=== PATIENT | female | born 1960 | race Caucasian/White ===

== ENCOUNTER 2025-05-14 06:35 | Outpatient (CLI) | payer SELFPAY ==
--- OUTSIDE RECORDS SUMMARY | 2022-09-14 12:25 | XMS_ITS | Encounter Summary ---
Author Organization [facility] Address [address] [place] [address] Care Team Providers Care Chlorinator Name Role Phone Oneyda Gunn MD Primary Care Provider [phone] Encounter Details Date Type Department Care Team (Late st Contact Info) Description 09/14/2022 1:25 PM EDT Hospital Encounter [facility] PUL[facility] MEDIC[facility] [place] [address] Social History Tobacco Use Types Packs/Day Years Used Date Smoking Tobacco: Never Smokeless Tobacco: Never Comments:exposed to second h and smoke in the home growing up Alcohol Use Standard Drinks/Week Comments Yes 0 (1 standard drink = 0.6 oz pure alcohol) win or liquor rarely, maybe once every 1-3 months PHQ-2 Answer Date Recorded Retired Total Score 0 06/06/2021 Abuse Screen Answer Date Recorded Feels Unsafe at Home or Work/School no 07/05/2022 Feels Threatened by Someone no 06/25 Does Anyone Try to Keep You From Having Contact with Others or Doing Things Outside Your Home? no 07/05/2022 Physical Signs of Abuse Present no 07/05/2022 Housing Stability Answer Date Recorded Current Living Arrangements home 06/25 Potentially Unsafe Housing Conditions Not on miriam e 07/05/2022 Disabilities Answer Date Recorded Difficulty Concentrating, Remembering or Making Decisions no 07/05/2022 Difficulty Managing Errands Independently no 07/05/2022 Education Answer Date Recorded Help with school or training? Not on file Preferred Language Central African 07/03/2022 PHQ-2 Answer Date Recorded Patient Health Questionnaire-2 Score 0 09/18/2024 Comments No Sex and Gender Information Value Date Recorded Sex Assigned at Female 04/05/2020 3:01 PM EDT Legal Sex Female 10:46 AM EDT Gender Identity Female 04/05/2020 3:04 PM EDT Sexual Orientation Straight 04/05/2020 3: 01 PM EDT documented as of this encounter Functional Status documented as of this encounter Plan of Treatment Upcoming Encounters Date Type Department Care Team (Late st Contact Info) Description 05/15/2025 2:00 PM EST Appointment [facility] [place] [address] [facility] [address] [place] [address] 05/15/2025 3:00 PM EST Appointment [facility] [place] [address] [facility] [address] [place] [address] 06/11/2025 7:45 AM EST Appointment [facility] [address] [place] [facility] [address] [place] [address] 07/03/2025 9:00 AM EST Office Visit [facility] GASTROENTEROLOGY [address] [place] [phone] Bonnie More, AMBROSE [address] [facility] [address] [place] [id number] 09/28/2025 8:30 AM EDT Office Visit [facility] [address] [place] [address] Ayanna Cooney DO [address] [place] [address] documented as of this encounter Procedures Procedure Name Priority Date/Time Associated Diagnosis Comments XR CHEST PA AND LATERAL Routine 09/14/2022 1:29 PM EDT H/O Asthma documented in this encounter Results * XR Chest PA & Lateral (09/14/2022 1:29 PM EDT) Anatomical Region Laterality Modality Body, Chest N/A Radiographic Debbie ging Narrative 09/14/2022 1:43 PM EDT PA and lateral chest x-rays obtained Cardiac silhouette is within normal limits of size CT ratio is 12 x 29 No effusions, infiltrates, or consolidation Reagan Black MD IMG DIAGNOSTIC IMAGING ORDERABLES Final Result documented in this encounter Visit Diagnoses Not on filedocumented in this encounter Care Teams Chlorinator Relationship Specialty Start Date End Date Oneyda Gunn MD PCP - General Family Medicine 06/08/22 09/17/24 Dr. Samra Angeles Physical Medicine and Rehabilitation 06/06/21 documented as of this encounter
--- OUTSIDE RECORDS SUMMARY | 2025-03-30 13:00 | XMS_ITS | Encounter Summary ---
[facility] Organization [facility] Address [address] [place] [address] Care Team Providers Care Director Heart Name Role Phone Ayanna Cooney DO Primary Care Provider [phone] Reason for Referral * Diagnostic Imaging (Routine) - Closed Specialty Diagnoses / Procedures Referred By Aj t Referred To Contact Radiology Diagnoses Multinodular goiter Procedures US Thyroid Ayanna Cooney DO [address] [place] [address] Phone: tel: fax: [facility] [address] [place] [address] Phone: tel: Referral ID Status Reason Start Date Expiration Date Visits Re quested Visits Authorized [id number] Closed 03/30/2025 06/29/2026 1 1 * Consultation (Routine) - Authorized Specialty Diagnoses / Procedures Referred By Contac t Referred To Contact Gastroenterology Diagnoses NAFLD (nonalcoholic fatty liver disease) Procedures AL OFFICE/OUTPATIENT NEW MODERATE MDM 45 MINUTES Ayanna Cooney DO [address] [place] [address] Phone: tel: fax: [facility] [address] [place] [phone] Phone: tel: fax: Referral ID Status Reason Start Date Expiration Date Visits Requested Visits Authorized [id number] Authorized Specialty Services Required 03/30/2025 06/29/2026 1 1 * MRI/CAT/PET Scan (Routine) - Authorized Specialty Diagnoses / Procedures Referred By Contac t Referred To Contact Radiology Diagnoses Encounter for screening for coronary artery disease Procedures CT Cardiac Calcium Score Without Dye Ayanna Cooney DO [address] [place] [address] Phone: tel: fax: [facility] [address] [address] [place] [address] Phone: tel: Referral ID Status Reason Start Date Expiration Date V isits Requested Visits Authorized [id number] Authorized 03/30/2025 06/29/2026 1 1 * Monitoring (Routine) - Closed Specialty Diagnoses / Procedures Referred By Contjavier t Referred To Contact Cardiology Diagnoses Dizziness Palpitations Procedures Holter Monitor - 72 Hour Up To 15 Days Ayanna Cooney DO [address] [place] [address] Phone: tel: fax: [facility] [address] [place] [phone] Phone: tel: fax: Referral ID Status Reason Start Date Expiration Date Visits Re quested Visits Authorized [id number] Closed 03/30/2025 06/29/2026 1 1 * Diagnostic Imaging (Routine) - Authorized Specialty Diagnoses / Procedures Referred By Contac t Referred To Contact Radiology Diagnoses Dizziness Palpitations Procedures Duplex Carotid Ultrasound CAR Ayanna Cooney DO [address] [place] [address] Phone: tel: fax: [facility] [address] [place] [address] Phone: tel: Referral ID Status Reason Start Date Expiration Date V isits Requested Visits Authorized [id number] Authorized 03/30/2025 06/29/2026 1 1 * Diagnostic Imaging (Routine) - Authorized Specialty Diagnoses / Procedures Referred By Contac t Referred To Contact Cardiology Diagnoses Dizziness Palpitations Procedures Adult Transthoracic Echo Complete W/ Cont if Necessary Per Protocol AL ECHO TTHRC R-T 2D W/WOM-MODE COMPL SPEC&COLR D AL ECHO TRANSTHORC R-T 2D W/WO M-MODE REC F-UP/LMTD Ayanna Cooney DO [address] [place] [address] Phone: tel: fax: [facility] [address] [place] [address] Phone: tel: fax: Referral ID Status Reason Start Date Expiration Date V isits Requested Visits Authorized [id number] Authorized 03/30/2025 06/29/2026 1 1 Reason for Visit * Reason Comments Annual Exam Encounter Details Date Type Department Care Team (Late st Contact Info) Description 03/30/2025 2:00 PM EDT Office Visit [facility] [address] [place] [phone] Ayanna Cooney DO [address] [place] [address] Annual physical exam (Primary Dx); Prediabetes; Dizziness; Palpitations; NAFLD (nonalcoholic fatty liver disease); Multinodular goiter; Need for influenza vaccination; Encounter for screening for coronary artery disease; Need for pneumococcal vaccination Social History Tobacco Use Types Packs/Day Years Used Date Smoking Tobacco: Never Smokeless Tobacco: Never Tobacco Cessation:Counseling Given: Not Answered Comments:exposed to second hand smoke in the home growing up Alcohol [...] or training? Not on file Preferred Language Tuvaluan 07/03/2022 PHQ-2 Answer Date Recorded Patient Health Questionnaire-2 Score 0 09/18/2024 Comments No Sex and Gender Information Value Date Recorded Sex Assigned at Female 04/05/2020 3:01 PM EDT Legal Sex Female 10:46 AM EDT Gender Identity Female 04/05/2020 3:04 PM EDT Sexual Orientation Straight 04/05/2020 3: 01 PM EDT documented as of this encounter Last Filed Vital Signs Vital Sign Reading Time Taken Comments Blood Pressure 110/62 03/30/2025 1:56 PM EDT Pulse 86 03/30/2025 1:56 PM EDT Temperature 36.6 C (97.8 F) 03/30/2025 1:56 PM EDT Respiratory Rate 18 03/30/2025 1:56 PM EDT Oxygen Saturation 96% 03/30/2025 1:56 PM EDT Inhaled Oxygen Concentration - - Weight 67.9 kg (149 lb 12.8 oz) 03/30/2025 1:56 PM EDT Height 162.6 cm (5' 4 ) 03/30/2025 1:56 PM EDT Body Mass Index 25.71 03/30/2025 1:56 PM EDT documented in this encounter Patient Instructions * Attachments The following attachments cannot be sent through Care Everywhere. * Palpitations [id number] (Tuvaluan) documented in this encounter Progress Notes * Ayanna Cooney, - 03/30/2025 2:00 PM EDTAssociated Order(s): ECG 12 Lead Post-Procedure Diagnose(s): Dizziness; Palpitations Chief Complaint Annual Exam Subjective [place] presents to [facility] History of Present Illness The patient presents for an annual exam. She reports experiencing heart palpitations and occasional dizziness, particularly during physical activities such as using an elliptical machine. These symptoms also occur when she is at rest, accompanied by an unusual sensation in her chest. She has a history of mitral valve prolapse but notes kristopher t these current symptoms are different from her usual experience. She recalls wearing a Holter monitor in her late teens. She occasionally experiences shortness of breath, which can persist for several weeks or even months. She underwent a stress test with a stone breaker in the past. She has noticed that her palpitations often coincide with emotional distress or exercise, and can last for up to two months. She describes these episodes as feeling like her heart is stopping and starting again, followed by dizziness. She has experienced these symptoms three or four times in the past year, oftentriggered by emotional stress. She has been diagnosed with fatty liver disease and has noticed an increase in her cholesterol levels, bilirubin, and A1c. She was informed that these changes could be due to her fatty liver. She wasfirst diagnosed with fatty liver disease about a decade ago. She is considering changing her cupola operator due to a lack of follow-up. She had an abdominal ultrasound done recently, which showed diffuse fatty metamorphosis of the liver. She has a history of fatty liver disease and was told that her condition has worsened based on the ultrasound results. She has a history of cysts on her organs, including her liver, kidneys, and spleen. She is concerned about the possibility of nonalcoholic steatohepatitis (VERONICA) as she was informed about this during her ultrasound. Her A1c level has increased slightly from the previous year, and she has been making dietary changes to manage her blood sugar levels. She has noticed that her fasting blood sugar levels have been higher than expected. She is scheduled for a colonoscopy and endoscopy on 04/21/2025. She has a history of polyps and precancerous conditions. She had a mammogram earlier this year and is due for another one early next year. She is up-to-date with her eye exams and dental check-ups, with the next dental check-up scheduled in three weeks. She is not due for another Pap smear for over two months. She requests a refill of her albuterol nebulizer solution as her current supply has . She has a history of multinodular goiter and has had several thyroid ultrasounds, with the most recent one being in 01/2023. The following portions of the patient's history were reviewed and updated as appropriate: allergies, current medications, past family history, past medical history, past social history, past surgicalhistory, and problem list. Objective Physical Exam Vitals and nursing note reviewed. Constitutional: Appearance: Normal appearance. HENT: Right Ear: Tympanic membrane, ear canal and external ear normal. Left Ear: Tympanic membrane, ear canal and external ear normal. Cardiovascular: Rate and Rhythm: Normal rate and regular rhythm. Heart sounds: Normal heart sounds. Pulmonary: Effort: Pulmonary effort is normal. Breath sounds: Normal breath sounds. Musculoskeletal: Cervical back: Neck supple. Neurological: Mental Status: She is alert. Psychiatric: Mood and Affect: Mood normal. Physical Exam Result Review : Results 03/05/2025 03/05/2025 US, abdomen, complete [address] [place] [address] Patient Name: [place] Patient : [id number] Patient Ordering Provider: CUAUHTEMOC ST EXAM DATE: 03/05/2025 EXAM: US ABDOMEN COMPLETE CLINICAL INFORMATION: Fatty liver TECHNIQUE: Multiple sonographic images of the abdomen were obtained. COMPARISON: None. FINDINGS: LIVER: Diffuse fatty metamorphosis of the liver is noted. No obvious focal lesion. BILIARY SYSTEM: Gallbladder is normal in size and wall thickness. 5 mm filling defect compatible with polyp. No intrahepatic biliary dilatation. CBD measurement = mm. Normal in size. PANCREAS: Well visualized. Nor mal in size and echogenicity. No obvious focal lesion. RIGHT KIDNEY: Length = 11.1 cm. No hydronephrosis, mass or stone. LEFT KIDNEY: Length = 10.3 cm. No hydronephrosis, mass or stone. 16 mm cyst SPLEEN: Length = 11 cm. Normal in size echogenicity and echotexture. No obvious focal lesion. AORTA: Normal in diameter and course without evidence of aneurysm. IMPRESSION: 1. Fatty liver 2. Small gallbladder polyp. 3. Simple cyst left kidney Interpreted By: Reagan Perdomo MD 12 Lead Date/Time: 03/30/2025 2:51 PM Performed by: Ayanna Cooney DO Authorized by: Ayanna Cooney DO Comparison: compared with previous ECG from 05/17/2019 Similar to previous ECG Comparison to previous ECG: Sinus rhythm with short AL interval Rhythm: sinus rhythm Rate: normal BPM: 83 QRS axis: normal Other findings comments: Short AL interval Clinical impression: non-specific ECG Assessment and Plan Diagnoses and all orders for this visit: 1. Annual physical exam (Primary) - CBC (No Diff) - Comprehensive Metabolic Panel - TSH Rfx On Abnormal To Free T4 - Magnesium - Hemoglobin A1c 2. Prediabetes - CBC (No Diff) - Comprehensive Metabolic Panel - TSH Rfx On Abnormal To Free T4 - Magnesium - Hemoglobin A1c 3. Dizziness - CBC (No Diff) - Comprehensive Metabolic Panel - TSH Rfx On Abnormal To Free T4 - Magnesium - Adult Transthoracic Echo Complete W/ Cont if Necessary Per Protocol; Future - Duplex Carotid Ultrasound CAR; Future - Holter Monitor - 72 Hour Up To 15 Days; Future - Hemoglobin A1c - ECG 12 Lead 4. Palpitations - CBC (No Diff) - Comprehensive Metabolic Panel - TSH Rfx On Abnormal To Free T4 - Magnesium - Adult Transthoracic Echo Complete W/ Cont if Necessary Per Protocol; Future - Duplex Carotid Ultrasound CAR; Future - Holter Monitor - 72 Hour Up To 15 Days; Future - Hemoglobin A1c - ECG 12 Lead 5. NAFLD (nonalcoholic fatty liver disease) - Ambulatory Referral to Gastroenterology 6. Multinodular goiter - US Thyroid 7. Need for influenza vaccination - Fluzone 6mos+ ([id number]) 8. Encounter for screening for coronary artery disease - CBC (No Diff) - Comprehensive Metabolic Panel - TSH Rfx On Abnormal To Free T4 - Magnesium - CT Cardiac Calcium Score Without Dye; Future - Hemoglobin A1c 9. Need for pneumococcal vaccination - Pneumococcal Conjugate Vaccine 21-Valent All Other orders - albuterol (ACCUNEB) 1.25 MG/3ML nebulizer solution; Take 3 mL by nebulization Every 4 (Four) Hours As Needed for Wheezing or Shortness of Air. Dispense: 120 mL; Refill: 2 Assessment & Plan 1. Palpitations: - She reports experiencing heart palpitations, particularly during exercise and emotionally stressful events. - An EKG will be performed today to update her cardiac status. A 72-hour Holter monitor will be ordered to capture any arrhythmias. An echocardiogram will be scheduled to assess cardiac function. - Blood work will be conducted to check electrolytes, thyroid function, and anemia. 2. Dizziness: - She experiences dizziness, especially during physical activity and emotionally stressful events. - An ultrasound of the carotids will be ordered to evaluate blood flow to the head and neck. - Blood work will be conducted to check electrolytes, thyroid function, and anemia. 3. Fatty Liver: - She has a history of fatty liver and recent ultrasound results indicating diffuse fatty metamorphosis of the liver. - A referral to a cupola operator will be made for further evaluation and management. 4. Prediabetes: - Her A1c level is 5.9, indicating prediabetes. - She is advised to continue lifestyle modifications, including diet and exercise, to manage blood sugar levels. - Blood work will be conducted to monitor her glucose levels. 5. Medication Management: - A prescription for albuterol nebulizer solution will be sent to pharmacy. 6. Health Maintenance: - She is scheduled for a colonoscopy and endoscopy on 04/21/2025. She has a history of polyps and precancerous conditions. She had a mammogram earlier this year and is due for another one early next year. - She is up-to-date with her eye exams and dental check-ups, with the next dental check-up scheduled in three weeks. Follow Up Return in about 6 months (around 09/28/2025) for Recheck. Patient or patient surgical sales representative verbalized consent for the use of Ambient Listening during the visit with Ayanna Cooney DO for chart documentation. 03/31/2025 12:19 EDT Patient was given instructions and counseling regarding her condition or for health maintenance advice. Please see specific information pulled into the AVS if appropriate. documented in this encounter Plan of Treatment Upcoming Encounters Date Type Department Care Team (Late st Contact Info) Description 05/15/2025 2:00 PM EST Appointment [facility] [place] [address] [facility] [address] [place] [address] 05/15/2025 3:00 PM EST Appointment [facility] [place] [address] [facility] [address] [place] [address] 06/11/2025 7:45 AM EST Appointment [facility] [place] [address] [facility] [address] [place] [address] 07/03/2025 9:00 AM EST Office Visit [facility] [address] [phone] Bonnie More, FILLER FEEDER [address] [facility] [address] [place] [address] 09/28/2025 8:30 AM EDT Office Visit [facility] [address] [facility] [address] Ayanna Cooney DO [address] [facility] [address] Pending Results Name Type Priority Associated Diagnoses Date /Time US Thyroid Imaging Routine Multinodular goiter 05/12/2025 2:16 PM EST Holter Monitor - 72 Hour Up To 15 Days Cardiac Services Routine Dizziness Palpitations 03/31/2025 10:32 AM EDT Scheduled Orders Name Type Priority Associated Diagnoses Order Schedule Adult Transthoracic Echo Complete W/ Cont if Necessary Per Protocol Echocardiography Routine Dizziness Palpitations Expected: 04/04/2025, Expires: 06/30/2026 Duplex Carotid Ultrasound CAR Vascular Ultrasound Routine Dizziness Palpitations Expected: 04/06/2025 (Approximate), Expires: 03/30/2026 Holter Monitor - 72 Hour Up To 15 Days Cardiac Services Routine Dizziness Palpitations Expected: 04/04/2025, Expires: 03/30/2026 CT Cardiac Calcium Score Without Dye Imaging Routine Encounter for screening for coronary artery disease Expected: 03/31/2025, Expires: 06/30/2026 Scheduled Referrals Name Type Priority Associated Diagnoses Order Schedule Ambulatory Referral to Gastroenterology Outpatient Referral Routine NAFLD (nonalcoholic fatty liver disease) Ordered: 03/30/2025 documented as of this encounter Procedures Procedure Name Priority Date/Time Associated Diagnosis Comments TSH RFX ON ABNORMAL TO FREE T4 Routine 03/30/2025 2:51 PM EDT Annual physical exam Prediabetes Dizziness Palpitations Encounter for screening for coronary artery disease CBC (NO DIFF) Routine 03/30/2025 2:51 PM EDT Annual physical exam Prediabetes Dizziness Palpitations Encounter for screening for coronary artery disease MAGNESIUM Routine 03/30/2025 2:51 PM EDT Annual physical exam Prediabetes Dizziness Palpitations Encounter for screening for coronary artery disease HEMOGLOBIN A1C Routine 03/30/2025 2:51 PM EDT Annual physical exam Prediabetes Dizziness Palpitations Encounter for screening for coronary artery disease COMPREHENSIVE METABOLIC PANEL Routine 03/30/2025 2:51 PM EDT Annual physical exam Prediabetes Dizziness Palpitations Encounter for screening for coronary artery disease ECG 12-LEAD Routine 03/30/2025 2:51 PM EDT Dizziness Palpitations documented in this encounter Results * (ABNORMAL) Hemoglobin A1c (03/30/2025 2:51 PM EDT) Hemoglobin A1C 6.0(H) 4.8 - 5.6 % [facility] Comment: Prediabetes: 5.7 - 6.4 Diabetes: >6.4 Glycemic control for adults with diabetes: <7.0 Blood 03/30/2025 2:51 PM EDT 03/30/2025 Narrative [facility] ([facility]) - 03/31/2025 8:11 AM EDT Performed at: - [address] [id number] Colliery Clerk: Sandro Velázquez PhD, Phone: [phone] Patient Fasting: Y [facility] Marina Cooney LAB BLOOD ORDERABLES Final Result Performing Organization Address [facility] Co de Phone Number [facility] [address] [place] [address], [place] [phone] [facility] [address] [place] [address], [place] [phone] * Magnesium (03/30/2025 2:51 PM EDT) Magnesium 2.2 1.6 - 2.3 mg/dL [facility] Blood 03/30/2025 2:51 PM EDT 03/30/2025 Narrative [facility] ([facility]) - 03/31/2025 8:11 AM EDT Performed at: [address] [id number] Colliery Clerk: Sandro Velázquez PhD, Phone: [phone] Patient Fasting: Y Ayanna Cooney DO LAB BLOOD ORDERABLES Final Result Performing Organization Address [facility] de Phone Number [facility] [address] [place] [address], [place] [phone] [facility] [address] [place] [address], [place] [phone] * TSH Rfx On Abnormal To Free T4 (03/30/2025 2:51 PM EDT) TSH 1.510 0.450 - 4.500 uIU/mL [facility] Blood 03/30/2025 2:51 PM EDT 03/30/2025 Narrative [facility] ([facility]) - 03/31/2025 8:11 AM EDT Performed at: - [facility] [place] [id number] [place], [place] [id number] Colliery Clerk: Sandro Velázquez PhD, Phone: [phone] Patient Fasting: Y Ayanna Cooney LAB BLOOD ORDERABLES Final Result [facility] (AMBULAT[facility]) [address] [place] [address], [facility] [address] [place] [address], * Comprehensive Metabolic Panel (03/30/2025 2:51 PM EDT) [facility] Glucose 97 70 - 99 mg/dL [facility] BUN 11 8 - 27 mg/dL [facility] Creatinine 0.89 0.57 - 1.00 mg/dL [facility] EGFR Result 73 >59 mL/min/1.7 3 [facility] BUN/Creatinine Ratio 12 12 - 28 [facility] Sodium 144 134 - 144 mmol/L [facility] Potassium 4.4 3.5 - 5.2 mmol/L [facility] Chloride 106 96 - 106 mmol/L [facility] Total CO2 22 20 - 29 mmol/L [facility] Calcium 9.8 8.7 - 10.3 mg/dL [facility] Total Protein 6.9 6.0 - 8.5 g/dL [facility] Albumin 4.7 3.9 - 4.9 g/dL [facility] Globulin 2.2 1.5 - 4.5 g/dL [facility] Total Bilirubin 0.6 0.0 - 1.2 mg/dL [facility] Alkaline Phosphatase 75 49 - 135 IU/L [facility] AST (SGOT) 24 0 - 40 IU/L [facility] ALT (SGPT) 23 0 - 32 IU/L [facility] Blood 03/30/2025 2:51 PM EDT 03/30/2025 Narrative [facility] ([facility]) - 03/31/2025 8:11 AM EDT Performed at: 01 - [facility] [address] [place], [place] [id number] Colliery Clerk: Sandro Velázquez PhD, Phone: [phone] Patient Fasting: Y Ayanna Cooney DO LAB BLOOD ORDERABLES Final Result Performing Organization Address City/[facility]/ZIP Co de Phone Number [facility] ([facility]) [address] [place] [address], [place] [phone] [facility] [address] [place] [address], [place] [phone] * (ABNORMAL) CBC (No Diff) (03/30/2025 2:51 PM EDT) [facility] WBC 7.1 3.4 - 10.8 x10E3/uL [facility] RBC 5.57(H) 3.77 - 5.28 x10E6/uL [facility] Hemoglobin 15.4 11.1 - 15.9 g/dL [facility] Hematocrit 47.7(H) 34.0 - 46.6 % [facility] MCV 86 79 - 97 fL [facility] MCH 27.6 26.6 - 33.0 pg [facility] MCHC 32.3 31.5 - 35.7 g/dL [facility] RDW 13.4 11.7 - 15.4 % [facility] Platelets 319 150 - 450 x10E3/uL [facility] Blood 03/30/2025 2:51 PM EDT 03/30/2025 Narrative [facility] (AMBULATORY) - 03/31/2025 8:11 AM EDT Performed at: 01 - [facility] [address] [place], [place] [id number] Colliery Clerk: Sandro Velázquez PhD, Phone: [phone] Patient Fasting: Y Ayanna Cooney DO LAB BLOOD ORDERABLES Final Result [facility] ([facility]) [address] [place] [address], [place] [phone] [facility] [address] [place] [address], [place] [phone] * ECG 12-LEAD (03/30/2025 2:51 PM EDT) Narrative Ayanna Cooney DO - 03/30/2025 2:51 PM EDT Ayanna Cooney DO 03/31/2025 12:19 PM ECG 12 Lead Date/Time: 03/30/2025 2:51 PM Performed by: Ayanna Cooney DO Authorized by: Ayanna Cooney DO Comparison: compared with previous ECG from 05/17/2019 Similar to previous ECG Comparison to previous ECG: Sinus rhythm with short AL interval Rhythm: sinus rhythm Rate: normal BPM: 83 QRS axis: normal Other findings comments: Short AL interval Clinical impression: non-specific ECG us Ayanna Cooney DO ECG ORDERABLES Final Resul t documented in this encounter Visit Diagnoses Diagnosis Annual physical exam- Primary Routine general medical examination at a health care facility Prediabetes Other abnormal glucose Dizziness Dizziness and giddiness Palpitations NAFLD (nonalcoholic fatty liver disease) Multinodular goiter Nontoxic multinodular goiter Need for influenza vaccination Need for prophylactic vaccination and inoculation against influenza Encounter for screening for coronary artery disease Need for pneumococcal vaccination Need for prophylactic vaccination against streptococcus pneumoniae (pneumococcus) documented in this encounter Care Teams Director Heart Relationship Specialty Start Date End Date [place] [address] PCP - General Family Medicine 09/18/24 Dr. Samra Angeles Physical Medicine and Rehabilitation 06/06/21 documented as of this encounter
--- OUTSIDE RECORDS SUMMARY | 2025-03-31 09:30 | XMS_ITS | Encounter Summary ---
Author Organization [facility] Address [address] [place] [address] Care Team Providers Care Cancer Program Director Name Role Phone Ayanna Cooney DO Primary Care Provider [phone]- [phone] Reason for Visit * Monitoring (Routine) - Closed Specialty Diagnoses / Procedures Referred By Aj simental Referred To Contact Cardiology Diagnoses Dizziness Palpitations Procedures Holter Monitor - 72 Hour Up To 15 Days Ayanna Cooney DO [address] [place] [address] Phone: tel: fax: [facility] [address] [place] [phone] Phone: tel: fax: Referral ID Status Reason Start Date Expiration Date Visits Re quested Visits Authorized [id number] Closed 03/30/2025 06/29/2026 1 1 Encounter Details Date Type Department Care Team (Latest Contact Info) Description 03/31/2025 10:30 AM EDT Ancillary Procedure [facility] [address] [address] Dizziness; Palpitations Social History Tobacco Use Types Packs/Day Years [...] or training? Not on file Preferred Language British 07/03/2022 PHQ-2 Answer Date Recorded Patient Health Questionnaire-2 Score 0 09/18/2024 Comments No Sex and Gender Information Value Date Recorded Sex Assigned at Female 04/05/2020 3:01 PM EDT Legal Sex Female 10:46 AM EDT Gender Identity Female 04/05/2020 3:04 PM EDT Sexual Orientation Straight 04/05/2020 3: 01 PM EDT documented as of this encounter Plan of Treatment Upcoming Encounters Date Type Department Care Team (Late st Contact Info) Description 05/15/2025 2:00 PM EST Appointment [facility] NONINVASIVE LAB [address] [place] [address] 05/15/2025 3:00 PM EST Appointment [facility] NONINVASIVE LAB [address] [place] [address] 06/11/2025 7:45 AM EST Appointment [facility] CT [address] [place] [address] 07/03/2025 9:00 AM EST Office Visit [facility] [address] [facility] [address] [place] [phone] Bonnie More, [employer] PROJECT MANAGER [address] [facility] [address] [place], [place] [phone] 09/28/2025 8:30 AM EDT Office Visit [facility] [address] [place] [address] Ayanna Cooney DO [address] [place] [address] Pending Results Name Type Priority Associated Diagnoses Date /Time Holter Monitor - 72 Hour Up To 15 Days Cardiac Services Routine Dizziness Palpitations 03/31/2025 10:32 AM EDT documented as of this encounter Visit Diagnoses Diagnosis Dizziness Dizziness and giddiness Palpitations documented in this encounter Care Teams Cancer Program Director Relationship Specialty Start Date End Date Ayanna Cooney DO [address] [place] [address] PCP - General Family Medicine 09/18/24 Dr. Samra Angeles Physical Medicine and Rehabilitation 06/06/21 documented as of this encounter
--- OUTSIDE RECORDS SUMMARY | 2025-05-12 13:57 | XMS_ITS | Encounter Summary ---
Author Organization [facility] Address [address] [place] [address] Care Team Providers Care Jd Edwards Consultant Name Role Phone Ayanna Cooney DO Primary Care Provider [phone]- [phone] Reason for Visit * Diagnostic Imaging (Routine) - Closed Specialty Diagnoses / Procedures Referred By Aj simental Referred To Contact Radiology Diagnoses Multinodular goiter Procedures US Thyroid Ayanna Cooney DO [address] [facility] [place] [address] Phone: tel: fax: [facility] [place] [address] [place] [address] Phone: tel: Referral ID Status Reason Start Date Expiration Date Visits Re quested Visits Authorized [id number] Closed 03/30/2025 06/29/2026 1 1 Encounter Details Date Type Department Care Team (Latest Contact Info) Description 05/12/2025 1:57 PM EST - 05/12/2025 11:59 PM EST Hospital Encounter [facility] [place] [address] [place] [place] [address] Arrived Discharge Disposition: Home or Self Care Social History Tobacco Use Types Packs/Day Years [...] or training? Not on file Preferred Language Spanish 07/03/2022 PHQ-2 Answer Date Recorded Patient Health Questionnaire-2 Score 0 09/18/2024 Comments No Sex and Gender Information Value Date Recorded Sex Assigned at Female 04/05/2020 3:01 PM EDT Legal Sex Female 10:46 AM EDT Gender Identity Female 04/05/2020 3:04 PM EDT Sexual Orientation Straight 04/05/2020 3: 01 PM EDT documented as of this encounter Medications at Time of Discharge albuterol (ACCUNEB) 1.25 MG/3ML nebulizer solution Take 3 mL by nebulization Every 4 (Four) Hours As Needed for Wheezing or Shortness of Air. 120 mL 2 5 Cholecalciferol (VITAMIN D3) 5000 units capsule capsule Take 1 capsule by mouth Every Other Day. esomeprazole (nexIUM) 20 MG capsule Take 1 capsule by mouth Every Morning Before Breakfast. methocarbamol (ROBAXIN) 500 MG tablet TAKE ONE TABLET BY MOUTH THREE TIMES A DAY NEEDED FOR NECK PAIN 30 tablet 9 Multiple Vitamins-Minerals (MULTIVITAMIN ADULT EXTRA C PO) Take 1 tablet/day by mouth. onabotulinumtoxina (Botox) 100 units reconstituted solution injection ondansetron (ZOFRAN) 4 MG tablet Take 1 tablet by mouth Every 8 (Eight) Hours As Needed (migraine). 0 rizatriptan SENIOR DENTIST (MAXALT-SENIOR DENTIST) [address] 1 tablet on the tongue 1 (One) Time As Needed for Migraine. Ventolin HFA 108 (90 Base) MCG/ACT inhalerIndications: Intermittent asthma without complication, unspecified asthma severity Inhale 2 puffs Every 4 (Four) Hours As Needed for Wheezing or Shortness of Air. 8 g 5 5 zolpidem (Ambien) 5 MG tabletIndications:P rimary insomnia Take 1 tablet by mouth At Night As Needed for Sleep. 90 tablet 5 documented as of this encounter Plan of Treatment Upcoming Encounters Date Type Department Care Team (Late st Contact Info) Description 05/15/2025 2:00 PM EST Appointment [facility]INVASIVE LAB [place] [address] [facility] [address] [place] [address] 05/15/2025 3:00 PM EST Appointment [facility] NONINVASIVE LAB [address] [place] [address] 06/11/2025 7:45 AM EST Appointment [facility] CT [address] [place] [address] 07/03/2025 9:00 AM EST Office Visit [facility] GASTROENTEROLOGY [address] [place] [phone] Bonnie More APRN [address] [facility] [address] [place], [place] [id number] 09/28/2025 8:30 AM EDT Office Visit [facility] FAM[facility] [address] [place] [address] Ayanna Cooney DO [address] [place] [address] Pending Results Name Type Priority Associated Diagnoses Date /Time US Thyroid Imaging Routine Multinodular goiter 05/12/2025 2:16 PM EST documented as of this encounter Visit Diagnoses Not on filedocumented in this encounter Care Teams Jd Edwards Consultant Relationship Specialty Start Date End Date Ayanna Cooney DO [address] [place] [address] PCP - General Family Medicine 09/18/24 Dr. Samra Angeles Physical Medicine and Rehabilitation 06/06/21 documented as of this encounter
--- OUTSIDE RECORDS SUMMARY | 2025-05-14 06:40 | XMS_ITS | Encounter Summary ---
[facility] Address [address] [place] [address] Care Team Providers Care Splash Line Operator Name Role Phone Ayanna Cooney DO Primary Care Provider [phone]- [phone] Encounter Details Date Type Department Care Team (Late st Contact Info) Description 03/31/2025 Results Follow-Up [facility] [address] [facility] [place] [address] Ayanna Cooney DO [address] [facility] [place] [address] Social History Tobacco Use Types Packs/Day Years [...] or training? Not on file Preferred Language Afghan 07/03/2022 PHQ-2 Answer Date Recorded Patient Health [...] Info) Description 05/15/2025 2:00 PM EST Appointment [facility] NONINVASIVE LAB [place] [address] [facility] [address] [place] [address] 05/15/2025 3:00 PM EST Appointment [facility] NONINVASIVE LAB [place] [address] [facility] [address] [place] [address] 06/11/2025 7:45 AM EST Appointment [facility] [place] [address] [facility] [address] [place] [address] 07/03/2025 9:00 AM EST Office Visit [facility] GASTROENTEROLOGY [address] [place] [phone] Bonnie More, ATHLETIC SCOUT [address] [facility] [address] [place], [place] [phone] 09/28/2025 8:30 AM EDT Office Visit [facility] [address] [facility] [place] [address] Ayanna Cooney DO [address] [place] [address] documented as of this encounter Visit Diagnoses Not on filedocumented in this encounter Care Teams Splash Line Operator Relationship Specialty Start Date End Date Ayanna Cooney DO [address] [place] [address] PCP - General Family Medicine 09/18/24 Dr. Samra Angeles Physical Medicine and Rehabilitation 06/06/21 documented as of this encounter
--- OUTSIDE RECORDS SUMMARY | 2025-05-14 06:40 | XMS_ITS | Clinical Summary ---
Author Organization [facility] Address [address] [place] [address] Care Team Providers Care Gastrointestinal Technician Name Role Phone Ayanna Cooney Primary Care Provider [phone] Allergies Active Allergy Reactions Criticality Noted Date Comments Amoxicillin Nausea Only,Other (See Comments) High 02/02/2017 Chest pain, heavy headed Azithromycin Other (See Comments),Nausea Only High 05/19/2019 Chest pain Baclofen GI Intolerance,Other (See Comments) Low 06/06/2021 Chlorhexidine Hives,Itching,Rash Medium 07/27/2022 Fluorouracil Hives Medium Fluticasone-Salmeterol Shortness Of Breath High Nuts Swelling Low 09/15/2014 Tree nuts throat swelling Montelukast Sodium Other (See Comments) Medium 019 Asthma gets worse Topiramate Other (See Comments) High 10/04/2018 Stomach issues and confusion. Medications Cholecalciferol (VITAMIN D3) 5000 units capsule capsule Take 1 capsule by mouth Every Other Day. Active methocarbamol (ROBAXIN) 500 MG tablet TAKE ONE TABLET BY MOUTH THREE TIMES A DAY NEEDED FOR NECK PAIN 30 tablet 12/18/19 19 Active Additional Information Patient taking differently: 500 mg Oral As Needed, TAKE ONE TABLET BY MOUTH THREE TIMES A DAY NEEDED FOR NECK PAIN, Informant: Self, Reported on 03/30/2025 Multiple Vitamins-Minerals (MULTIVITAMIN ADULT EXTRA C PO) Take 1 tablet/day by mouth. Active ondansetron (ZOFRAN) 4 MG tablet Take 1 tablet by mouth Every 8 (Eight) Hours As Needed (migraine). 05/13/20 Active onabotulinumtoxina (Botox) 100 units reconstituted solution injection A ctive esomeprazole (nexIUM) 20 MG capsule Take 1 capsule by mouth Every Morning Before Breakfast. Active rizatriptan CONFERENCE CENTER MANAGER (MAXALT-CONFERENCE CENTER MANAGER) [address] 1 tablet on the tongue 1 (One) Time As Needed for Migraine. Active Ventolin HFA 108 (90 Base) MCG/ACT inhalerIndications :Intermittent asthma without complication, unspecified asthma severity Inhale 2 puffs Every 4 (Four) Hours As Needed for Wheezing or Shortness of Air. 8 g 5 09/19/19 Active zolpidem (Ambien) 5 MG tabletIndications: Primary insomnia Take 1 tablet by mouth At Night As Needed for Sleep. 90 tablet 12/23/19 Active albuterol (ACCUNEB) 1.25 MG/3ML nebulizer solution Take 3 mL by nebulization Every 4 (Four) Hours As Needed for Wheezing or Shortness of Air. 120 mL 2 03/30/20 Active Active Problems Problem Noted Date Diagnosed Date Primary insomnia 12/22/2024 Mixed hyperlipidemia 12/22/2024 Osteopenia 09/18/2024 Prediabetes 09/18/2024 Intermittent asthma without complication 025 Irritable bowel syndrome with constipation 09/18 R/O Vocal cord dysfunction 01/30/2023 Shortness of breath 09/14/2022 Paroxysmal cough 09/14/2022 History of asthma (Neg PRISON and CPX) 09/14/2022 Multinodular goiter 03/27/2018 NAFLD (nonalcoholic fatty liver disease) 012 Overview (03/26/2018): on CT abdomen, mild. r ovarian cyst Heart murmur Overview (03/26/2018): MVP Intractable migraine without aura and without status migrainosus Encounters Date Type Department Care Team Description 05/12/2025 1:57 PM EST - 05/12/2025 11:59 PM EST Hospital Encounter [facility] [place] [address] [place] [address] Arrived Discharge Disposition: Home or Self Care 05/12/2025 Travel 04/10/2025 Telephone [facility] [address] [place] [address] Ayanna Cooney DO Prior Authorization 03/31/2025 10:30 AM EDT Ancillary Procedure [facility] [address] [facility] [address] [place] [address] Dizziness; Palpitations 03/31/2025 Results Follow-Up [facility] [address] [place] [address] Ayanna Cooney DO 03/30/2025 2:00 PM EDT Office Visit [facility] [address] [place] [address] Ayanna Cooney DO Annual physical exam (Primary Dx); Prediabetes; Dizziness; Palpitations; NAFLD (nonalcoholic fatty liver disease); Multinodular goiter; Need for influenza vaccination; Encounter for screening for coronary artery disease; Need for pneumococcal vaccination 03/30/2025 Travel from Last 3 Months Immunizations Immunization Administration Dates Next Due Arexvy (RSV, Adults 60+ yrs) 06/24/2023 COVID-19 (PFIZER) Purple Cap Monovalent 03/21/20,09/10/2020,08/21/2020 Flu Vaccine Quad PF >36MO 03/16/2017 FluMist 2-49yrs 02/23/2015 Fluzone >6mos 03/30/2025 Fluzone (or Fluarix & Flulav al for VFC) >6mos 03/16/2021,04/08/2020 Hepatitis A 08/26/2018,01/09/2018 Influenza Injectable Mdck Pf Quad 03/19/2023 Influenza recombinant 03/15/2024 Influenza, Unspecified 03/18/2022,06/28/2021 PCV21 (CAPVAXIVE) 03/30/2025 Pneumococcal Polysaccharide (PPSV23) 06/25/2007 Shingrix 07/07/2021,05/03/2021 TD Preservative Free (Tenivac) 10/04/2020 Tdap 2010 flucelvax quad pfs =>4 YRS 04/04/2019,03/27/2018 Family History Medical History Relation Name Comments Hearing loss Daughter 1 Gladis complete, left ear only Hearing loss Daughter 2 Gladis complete, left ear only Arthritis Father Matt Cancer Father Matt rectal at 62 yr s; liver- at 80 yrs old, squamous cell carcinoma Cerebral aneurysm Father Matt Cholecystitis Father Matt Cirrhosis Father Matt Colon cancer Father Matt Dementia Father Matt Diabetes Father Matt type 2 Heart disease Father Matt congestive hea rt failure from liver tumor blockage Hyperlipidemia Father Matt late in life Hypertension Father Matt Liver cancer Father Matt Liver disease Father Matt cirrhosis w/ca use undetermined, no alcohol or hepatitis Rectal cancer Father Matt Vision loss Father Matt cataracts Other Maternal Grandfather Grandpa Malinda [place] sinsons Stroke Maternal Grandmother Grandma Malinda Alcohol abuse Maternal Uncle 1 Alcohol abuse Maternal Uncle 2 all 3 war vets Heart disease Maternal Uncle 2 all 3 all 3 of heart attacks in 40's or 50's COPD Mother Natasha smoker, cause o f Cholecystitis Mother Natasha Migraines Mother Natasha Miscarriages / Stillbirths Mother Natasha multiple miscarriage s Pancreatitis Mother Natasha Seizures Mother Natasha petit mal type Stroke Mother Natasha TIA Breast cancer Paternal Aunt 1 Martha Cancer Paternal Aunt 1 Martha lung, smoker Stroke Paternal Aunt 1 Martha TIA Cancer Paternal Aunt 2 Colon cancer Paternal Aunt 2 Rectal cancer Paternal Aunt 2 Cancer Paternal Aunt 3 Martha lung, smoker Stroke Paternal Aunt 3 Martha TIA Asthma Paternal Grandmother Joelle adult o nset Breast cancer Paternal Grandmother Joelle Cancer Paternal Grandmother Joelle breast & cervical Diabetes Paternal Grandmother Jeolle type 2 Thyroid disease Paternal Grandmother Joelle hypo thyroidism Vision loss Paternal Grandmother Joelle glaucom a, cataracts Liver cancer Paternal Uncle 1 Cancer Paternal Uncle 2 Hussein liver bile duct- at 70 yrs Arthritis Sister 1 Aruna osteoarthritis in spine Cancer Sister 1 Aruna uterine at 39 y rs old, squamous cell carcinoma Diabetes Sister 1 Aruna type 1.5 Migraines Sister 1 Aruna Other Sister 1 Aruna Lewy Body Demen tia + possible Progressive Supranuclear Palsy Stroke Sister 1 Aruna Bleeding Disorder Sister 2 Bessie Diabetes Sister 2 Bessie type 2 Migraines Sister 2 Bessie Thyroid disease Sister 2 Bessie hypothyroidi sm Fibromyalgia Sister 3 all 3 Migraines Sister 3 all 3 Obesity Sister 3 all 3 Arthritis Sister 4 Bleeding Disorder Sister 4 Cancer Sister 4 Diabetes Sister 4 Migraines Sister 5 Connie Crohn's disease Son 1 Jayson Heart disease Son 1 Jayson Afib Vision loss Son 1 Jayson cataracts from steroids for Crohn's Ovarian cancer Neg Hx Relation Name Status Comments Daughter 1 Gladis Daughter 2 Gladis Alive Father Matt Maternal Grandfather Grandpa Malinda Alive Maternal Grandmother Grandma Malinda Alive Maternal Uncle 1 Alive Maternal Uncle 2 all 3 Alive Mother Natasha Paternal Aunt 1 Martha Paternal Aunt 2 Alive Paternal Aunt 3 Martha Alive Paternal Grandmother Joelle Alive Paternal Uncle 1 Alive Paternal Uncle 2 Hussein Alive Sister 1 Aruna Sister 2 Bessie Sister 3 all 3 Sister 4 Alive Sister 5 Connie Alive Son 1 Jayson Son 2 Jai Son 3 Jai Alive Social History Tobacco Use Types Packs/Day Years [...] or training? Not on file Preferred Language French 07/03/2022 PHQ-2 Answer Date Recorded Patient Health Questionnaire-2 Score 0 09/18/2024 Comments No Sex and Gender Information Value Date Recorded Sex Assigned at Female 04/05/2020 3:01 PM EDT Legal Sex Female 10:46 AM EDT Gender Identity Female 04/05/2020 3:04 PM EDT Sexual Orientation Straight 04/05/2020 3: 01 PM EDT Last Filed Vital Signs Vital Sign Reading [...] Mass Index 25.71 03/30/2025 1:56 PM EDT Plan of Treatment Upcoming Encounters Date Type Department Care Team (Late st Contact Info) Description 05/15/2025 2:00 PM EST Appointment [facility] [address] [place] [address] 05/15/2025 3:00 PM EST Appointment [facility] [address] [place] [address] 06/11/2025 7:45 AM EST Appointment [address] [place] [address] 07/03/2025 9:00 AM EST Office Visit [facility] [address] [place] [phone] Bonnie More, ADMINISTRATIVE ASST [address] [facility] [address] [place], [place] [id number] 09/28/2025 8:30 AM EDT Office Visit [facility] [address] [facility] [address] [facility] [place] [id number] Ayanna Cooney DO [address] [place] [address] Health Maintenance Due Date Last Done Comments Annual Gynecologic Pelvic an d Breast Exam 1960 COLOGUARD 09/21/2007 COLON CANCER SCREENING 5 YEA R SIGMOIDOSCOPY 09/21/2007 CT COLONOGRAPHY 09/21/2007 FECAL OCCULT BLOOD TEST 09/21/2007 FIT Testing (1 year) 09/21/2007 [facility] PLAN OF CARE 06/06/2023 03/08/2023 LIPID PANEL 12/04/2025 12/04/2024, 06/2020, 05/31/2020, Additional history exists ANNUAL PHYSICAL 03/30/2026 03/30/2025 COLONOSCOPY 09/05/2026 09/05/2021, 08/23, 03/12/2020, Additional history exists COLORECTAL CANCER SCREENING 09/05/2026 MAMMOGRAM 10/31/2026 10/31/2024, 01/2025, 06/04/2020, Additional history exists TDAP/TD VACCINES (3 - Td or Tdap) 10/04/2030 021, 2010 HEPATITIS C SCREENING Completed 01/19/2011 ZOSTER VACCINE Completed 07/07/2021, 05/03/2021 INFLUENZA VACCINE Completed 03/30/2025, , 03/19/2023, Additional history exists Pneumococcal Vaccine 50+ Completed 03/30/2025, 06/2007 Procedures Procedure Name Priority Date/Time Associated Diagnosis Comments ECG 12-LEAD Routine 03/30/2025 2:51 PM EDT Dizziness Palpitations HEMOGLOBIN A1C Routine 03/30/2025 2:51 PM EDT Annual physical exam Prediabetes Dizziness Palpitations Encounter for screening for coronary artery disease MAGNESIUM Routine 03/30/2025 2:51 PM EDT Annual physical exam Prediabetes Dizziness Palpitations Encounter for screening for coronary artery disease TSH RFX ON ABNORMAL TO FREE T4 [...] Encounter for screening for coronary artery disease LIPID PANEL W/ CHOL/HDL RATIO Routine 12/04/2024 8:41 AM EDT Irritable bowel syndrome with constipation Prediabetes Intermittent asthma without complication, unspecified asthma severity NAFLD (nonalcoholic fatty liver disease) Osteopenia, unspecified location Vitamin D deficiency MAMMO SCREENING DIGITAL TOMOSYNTHESIS BILATERAL W CAD Routine 10/30/2024 1:32 PM EDT Encounter for screening mammogram for malignant neoplasm of breast SCANNED - COLONOSCOPY 03/12/2020 SCANNED - INFLUENZA 04/04/2019 from Last 3 Months or Most Recently Relevant to Health Maintenance Results * TSH Rfx On Abnormal To Free T4 (03/30/2025 2:51 PM EDT) TSH 1.510 0.450 - 4.500 uIU/mL [facility] Blood 03/30/2025 2:51 PM EDT 03/30/2025 Narrative [facility] ([facility]) - 03/31/2025 8:11 AM EDT Performed at: - [facility] [id number] Reproducer: Sandro Velázquez PhD, Phone: [phone] Patient Fasting: Y us Ayanna Cooney DO LAB BLOOD ORDERABLES Final Result [facility] (AMBULATORY) [address] [place] [address], [place] [phone] [facility] [address] [place] [address], [place] [phone] * (ABNORMAL) CBC (No Diff) (03/30/2025 2:51 PM EDT) WBC 7.1 3.4 - 10.8 x10E3/uL [facility] [...] LAB Blood 03/30/2025 2:51 PM EDT 03/30/2025 [facility] (AMBULATORY) - 03/31/2025 8:11 AM EDT Performed at: [address] [id number] Reproducer: Sandro Velázquez PhD, Phone: [phone] Patient Fasting: Y Ayanna Cooney DO LAB BLOOD ORDERABLES Final Result [facility] [address] [place] [address], [facility] [address] [place] [address], * Magnesium (03/30/2025 2:51 PM EDT) Magnesium 2.2 1.6 - 2.3 mg/dL [facility] Blood 03/30/2025 2:51 PM EDT 03/30/2025 Narrative [facility] ([facility]) - 03/31/2025 8:11 AM EDT Performed at: [address] [id number] Reproducer: Sandro Velázquez PhD, Phone: [phone] Patient Fasting: Y Ayanna Cooney DO LAB BLOOD ORDERABLES Final Result Performing Organization Address City/[facility]/ZIP Co de Phone Number [facility] [address] [place] [address], [facility] [address] [place] [address], [place] [phone] * (ABNORMAL) Hemoglobin A1c (03/30/2025 2:51 PM EDT) Pathologist [facility] Hemoglobin A1C 6.0(H) 4.8 - 5.6 % [facility] Comment: Prediabetes: 5.7 - 6.4 Diabetes: >6.4 Glycemic control for adults with diabetes: <7.0 Blood 03/30/2025 2:51 PM EDT 03/30/2025 Narrative [facility] - 03/31/2025 8:11 AM EDT Performed at: - [facility] [address] [place] [id number] Reproducer: Sandro Velázquez PhD, Phone: [phone] Patient Fasting: Y Ayanna Cooney DO LAB BLOOD ORDERABLES Final Result Performing Organization Address [facility] Co de Phone Number [facility] (AMBULATORY) [address] [place] [address], [place] [phone] [facility] [address] [place] [address], [place] [phone] * Comprehensive Metabolic Panel (03/30/2025 2:51 PM EDT) Glucose 97 70 - 99 mg/dL [facility] [...] LAB Blood 03/30/2025 2:51 PM EDT 03/30/2025 [facility] (AMBULATORY) - 03/31/2025 8:11 AM EDT Performed at: [address] [place] [id number] Reproducer: Sandro Velázquez PhD, Phone: [phone] Patient Fasting: Y us Ayanna Cooney DO LAB BLOOD ORDERABLES Final Result [facility] ([facility]ULATORY) [address] [place] [address], [place] [phone] [facility] [address] [place] [address], [place] [phone] * ECG 12-LEAD (03/30/2025 2:51 PM EDT) Narrative Ayanna Cooney DO - 03/30/2025 2:51 PM EDT Ayanna Cooney DO 03/31/2025 12:19 PM ECG 12 Lead Date/Time: 03/30/2025 2:51 PM Performed by: Ayanna Cooney DO Authorized by: Ayanna Cooney DO Comparison: compared with previous ECG from 05/17/2019 Similar to previous ECG Comparison to previous ECG: Sinus rhythm with short W[place] interval Rhythm: sinus rhythm Rate: normal BPM: 83 QRS axis: normal Other findings comments: Short WY interval Clinical impression: non-specific ECG us Ayanna Cooney DO ECG ORDERABLES Final Resul t * (ABNORMAL) Lipid Panel With / Chol / HDL Ratio (12/04/2024 8:41 AM EDT) Total Cholesterol 225(H) 0 - 200 mg/dL [facility] Comment: Cholesterol Reference Ranges (U.S. Department of Health and Human Services ATP III Classifications) Desirable <200 mg/dL Borderline High 200-239 mg/dL High Risk >240 mg/dL Triglyceride Reference Ranges (U.S. Department of Health and Human Services ATP III Classifications) Normal <150 mg/dL Borderline High 150-199 mg/dL High 200-499 mg/dL Very High >500 mg/dL HDL Reference Ranges (U.S. Department of Health and Human Services ATP III Classifications) Low <40 mg/dl (major risk factor for CHD) High >60 mg/dl ('negative' risk factor for CHD) LDL Reference Ranges (U.S. Department of Health and Human Services ATP III Classifications) Optimal <100 mg/dL Near Optimal 100-129 mg/dL Borderline High 130-159 mg/dL High 160-189 mg/dL Very High >189 mg/dL LDL is calculated using the NIH LDL-C calculation. Triglycerides 196(H) 0 - 150 mg/dL [facility] HDL Cholesterol 55 40 - 60 mg/dL [facility] VLDL Cholesterol Jonathan 35 5 - 40 mg/dL [facility] LDL Chol Calc (NIH) 135(H) 0 - 100 mg/dL [facility] Chol/HDL Ratio 4.09 [facility] Blood 12/04/2024 8:41 AM EDT 12/04/2024 Narrative [facility] ([facility]) - 12/05/2024 3:07 AM EDT Performed at: [address] [place] [id number] Reproducer: Seng Carr MD, Phone: [phone] Patient Fasting: Y us Ayanna Cooney DO LAB BLOOD ORDERABLES Final Result [facility] ([facility]UL[facility]) [address] [place] [id number], [place] [phone] [facility] [address] [place] [address], * Mammo Screening Digital Tomosynthesis Bilateral With CAD (10/30/2024 1:32 PM EDT) Anatomical Region Laterality Modality Breast N/A Mammography 10/31/2024 9:20 AM EDT Impressions 10/31/2024 9:24 AM EDT Benign screening mammogram. RECOMMENDATION: Continue annual screening mammography. BI-RADS CATEGORY 2, BENIGN. CAD was utilized. The standard false-negative rate of mammography is between 10% and 25%. Complex patterns or increased breast density will markedly elevate the false-negative rate of mammography. A letter, in lay terminology, with the results of this exam will be mailed to the patient. 10/31/2024 9:[address] Jayson Velasco MD on Narrative 10/31/2024 9:24 AM EDT DIGITAL SCREENING MAMMOGRAM WITH TOMOSYNTHESIS HISTORY: Screening Mammography. Low dose full field digital breast tomosynthesis imaging was performed with 2D and 3D acquisitions consisting of bilateral CC and MLO views. Examination is compared to prior examination dating back to 12/20/2015. Examination is read in conjunction with computer aided detection. FINDINGS: There are scattered areas of fibroglandular density. No suspicious masses, microcalcifications or areas of architectural distortion are identified. Bilateral post biopsy changes are stable. Ayanna Cooney DO IMG MAMMOGRAPHY ORDERABLES Final Result * SCANNED - COLONOSCOPY (03/12/2020) Rosita Gunn MD CHART REVIEW TABS Final Res ult * SCANNED - INFLUENZA (04/04/2019) Lorri Montano APRN CHART REVIEW TABS Final Re sult from Last 3 Months or Most Recently Relevant to Health Maintenance [facility] [employer] PPO Care Teams Gastrointestinal Technician Relationship Specialty Start Date End Date Ayanna Cooney DO [address] [place] [address] PCP - General Family Medicine 09/18/24 Dr. Samra Angeles Physical Medicine and Rehabilitation 06/06/21
--- OUTSIDE RECORDS SUMMARY | 2025-05-14 06:40 | XMS_ITS | Patient Health Record ---
Author Organization [facility] Address [address] [place] [address] Care Team Providers Care Waiter Name Role Phone NO PCP Primary Care Provider Unavailabl e Allergies Allergen (clinical drug ingredient) Drug/Non Drug Allergy documented on EMR Reaction Allergy Type Onset Date Status amoxicillin Amoxicillin gastrointestinal upset Drug Allergy Active baclofen Baclofen gastrointestinal upset Drug Allergy Active fluorouracil Carac hives Drug Allergy Acti ve topiramate Topamax gastrointestinal upset Drug Allergy Active Reason For Referral No Information Medications Medication SIG (Take, Route, Frequency, Duration) Notes Start Date End Date Status Ventolin HFA 108 (90 Base) MCG/ACT 2 puff(s) inhaled every 6 hours Active Breo Ellipta 200-25 MCG/INH 1 puff(s) inhaled once a day Active Gabapentin 100 MG 1 cap(s) orally 2 times a day Active Albuterol Sulfate (2.5 MG/3ML) 0.083% 3 mL by nebulizer every 6 hours Active Maxalt 10 MG 1 tab(s) orally once a day Active Methocarbamol 500 MG 2 tab(s) orally prn Active ALLERGY INJECTIONS SQ WEEKLY *Please revie w for potential replacement for e-prescription and drug interaction check* Active Ondansetron HCl 4 MG 1 tab(s) orally every 8 hours Active Omeprazole 20 MG 1 cap(s) orally once a day Active Immunizations Vaccine Route Administration Date Status Comme nts Flu Vaccine (Given in Past) Unspecified Unknown 06/28/2021 Administered Social History Tobacco Use: Social History Observation Description Date Details (start date - stop date) Never Smoker NA - NA Alcohol Misuse/Abuse (Audit C): Question Answer Notes Did you have a drink containing alcohol in the p ast year? No Points: 0 Interpretation: Negative Tobacco Use Question Answer Notes Are you a Never smoker Problems Problem Type SNOMED Code ICD Code Onset Dates Problem Status W/U Status Risk Notes Problem migraine (disorder) (04336881) Migraines (G43.909) Active confirmed Problem Gastroesophageal reflux disease (248274592) GERD (gastroesophage al reflux disease) (K21.9) Active confirmed Problem Asthma without status asthmaticus (78376372) Persistent asthma, unspecified asthma severity, unspecified whether complicated (J45.909) Active confirmed Problem History of pulmonary embolus (797133010) History of pulmonary embolism (Z86.711) Active confirmed Problem Degeneration of cervical intervertebral disc (01858018) Degenerative disc disease, cervical (M50.30) Active confirmed Problem Encounter for laboratory testing for COVID-19 virus (Z20.822) Active confirmed Plan Of Treatment No Information Insurance Providers Payer Name Payer Address Payer Phone Subscriber Number Group Number Insured Name Patient Relationship to Insured Coverage Start Date Coverage End Date [facility] [address] [place] [phone] [id number] [place] Self - patient is the insured Medical (General) History Medical History History ICD Code Migraines G43.909 GERD (gastroesophageal reflux disease) K 21.9 Persistent asthma, unspecifi ed asthma severity, unspecified whether complicated J45.909 History of pulmonary embolism Z86.711 Degenerative disc disease, cervical M50. 30 Surgical History Surgery Date(Month/Year) vatrectomy bilateral eyes 2020 lasik 2014 tonsillectomy 1980 lumpectomy 1996 partial hysterectomy 1998 Hospitalization History Reason Date(Month/Year) as above PE 06/2011
--- OUTSIDE RECORDS SUMMARY | 2025-05-14 06:40 | XMS_ITS | Clinical Summary ---
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 If the informationreleased to you contains information about AIDs or HIVtest results, that information has been disclosed to you from records whoseconfidentiality is protected by state law ([place]RS 214.625). State law proh ibitsyou from making any further disclosure of such information relating to AIDS orHIV without the specific written consent of the person to whom such informationpertains, or as otherwise permitted by state law. A general authorization forthe release of medical or other information is NOT sufficient for this purpose.2. If the information released to you contains information about alcohol ordrug abuse diagnosis, treatment for such abuse, or referrals for treatment, andif the release was made by a program as defined in 42 CFR 2.11, thisinformation has been disclosed to you from records protected by Federalconfidentiality rules ( TheFederal rules restrict any use of the information to criminally investigate orprosecute any alcohol or drug abuse patient.3. If the information released to you contains information about a person'smental health or chemical dependency, you may not redisclose or otherwisereveal information concerning the mental health or chemical dependency of thatperson, beyond the purpose for which the disclosure was made, without firstobtaining that person's specific written consent to the redisclosure. [id number].[facility]
--- OUTSIDE RECORDS SUMMARY | 2025-05-14 06:40 | XMS_ITS | Encounter Summary ---
[facility] Address [address] [place] [address] Care Team Providers Care Research Nurse Practitioner Name Role Phone Ayanna Cooney DO Primary Care Provider Reason for Visit * Reason Onset Date Comments Prior Authorization 04/10/2025 Encounter Details Date Type Department Care Team (Late st Contact Info) Description 04/10/2025 Telephone [facility] [address] [address] Ayanna Cooney DO [address] [address] Prior Authorization Social History Tobacco Use Types Packs/Day Years [...] or training? Not on file Preferred Language Honduran 07/03/2022 PHQ-2 Answer Date Recorded Patient Health Questionnaire-2 Score 0 09/18/2024 Comments No Sex and Gender Information Value Date Recorded Sex Assigned at Female 04/05/2020 3:01 PM EDT Legal Sex Female 10:46 AM EDT Gender Identity Female 04/05/2020 3:04 PM EDT Sexual Orientation Straight 04/05/2020 3: 01 PM EDT documented as of this encounter Miscellaneous Notes * Telephone Encounter - Smiley Lau RegSched Rep - 04/14/2025 12:16 PM EDT Insurance typically will deny the test, I did go ahead and submit to insurance and its currently pending. Hub can relay * Telephone Encounter - Sharon Seals RegSched Rep - 04/10/2025 9:27 AM EDT Caller: Blossom Fleming Relationship to patient: Self Best call back number: [phone] Provider: MAYRA Robins PA needed: CT CALCIUM SCORE TEST Reason for call/Prior Auth: PATIENT STATES SHE SPOKE WITH HER INSURANCE AND WAS TOLD THAT IF WE SUBMIT A PA FOR THIS TEST, THEY WILL FULLY COVER IT. SHE CONTACTED BILLING AND THEY REFUSED TO SUBMIT THIS PA FOR HER. SHE WOULD LIKE US TO DO SO FOR HER. PLEASE LET THE PATIENT KNOW WHEN THE PA HAS BEENSUBMITTED, WELL WHEN A DECISION HAS BEEN RECEIVED ON IT. documented in this encounter Plan of Treatment Upcoming Encounters Date Type Department Care Team (Late st Contact Info) Description 05/15/2025 2:00 PM EST Appointment [facility] [place] [address] [place] [phone] 05/15/2025 3:00 PM EST Appointment [facility] [place] [address] [place] [address] 06/11/2025 7:45 AM EST Appointment [facility] [place] [address] [place] [address] 07/03/2025 9:00 AM EST Office Visit [facility] [address] [facility] [address] [place] [address] Bonnie More, STRIPPING CUTTER AND WINDER [address] [facility] [address] [place] [address] 09/28/2025 8:30 AM EDT Office Visit [facility] [address] [place] [address] Ayanna Cooney DO [address] [place], [place] [id number] documented as of this encounter Visit Diagnoses Not on filedocumented in this encounter Care Teams Research Nurse Practitioner Relationship Specialty Start Date End Date Ayanna Cooney DO [address] [place] [address] PCP - General Family Medicine 09/18/24 Dr. Samra Angeles Physical Medicine and Rehabilitation 06/06/21 documented as of this encounter
--- OUTSIDE RECORDS SUMMARY | 2025-05-14 06:40 | XMS_ITS | Encounter Summary ---
[facility] Address [address] [place] [address] Care Team Providers Care Laborer Beam House Name Role Phone Ayanna Cooney Primary Care Provider Encounter Details Date Type Department Care Team (Latest Contact Info) Description 05/12/2025 Travel Social History Tobacco Use Types Packs/Day Years [...] or training? Not on file Preferred Language Taiwanese 07/03/2022 PHQ-2 Answer Date Recorded Patient Health [...] Info) Description 05/15/2025 2:00 PM EST Appointment [facility] [place] [address] [place] [address] 05/15/2025 3:00 PM EST Appointment [facility] [place] [address] [place] [address] 06/11/2025 7:45 AM EST Appointment [facility] [address] [place] [address] [place] [address] 07/03/2025 9:00 AM EST Office Visit [facility] [address] [facility] [address] [place] [address] Bonnie More, DIAMOND ASSORTER [address] [facility] [address] [place] [address] 09/28/2025 8:30 AM EDT Office Visit [facility] [address] [place] [phone] Ayanna Cooney DO [address] [place] [address] documented as of this encounter Visit Diagnoses Not on filedocumented in this encounter Care Teams Laborer Beam House Relationship Specialty Start Date End Date Ayanna Cooney DO [address] [place] [address] PCP - General Family Medicine 09/18/24 Dr. Samra Angeles Physical Medicine and Rehabilitation 06/06/21 documented as of this encounter
--- OUTSIDE RECORDS SUMMARY | 2025-05-14 06:40 | XMS_ITS | Clinical Summary ---
Author Organization [facility] Address [facility] [place] [address] Care Team Providers Care Slack Cooper Name Role Phone Mariely Fleming MD Primary Care Provider Allergies Active Allergy Reactions Criticality Noted Date Comments Amoxicillin 09/15/2014 Azithromycin 09/15/2014 Tree Nuts 09/15/2014 Medications albuterol (PROVENTIL HFA;VENTOLIN HFA) 108 (90 BASE) MCG/ACT inhaler Inhale 2 puffs into the lungs every 6 (six) hours as needed for Wheezing Active Fluticasone Propionate (FLONASE NA) by Nasal route Ac tive ibuprofen (ADVIL,MOTRIN) 600 MG tablet Take 600 mg by mouth every 6 (six) hours as needed for Pain Active pseudoephedrine (SUDAFED) 30 MG tablet Take 30 mg by mouth every 4 (four) hours as needed for Congestion Active Dextromethorpha n-Guaifenesin 60-1200 MG Take 1 tablet by mouth every 12 (twelve) hours Active oseltamivir (TAMIFLU) 75 MG capsule Take 1 capsule by mouth 2 (two) times daily for 5 days 10 capsule 0 5 Active benzonatate (TESSALON) 200 MG capsule Take 1 capsule by mouth 3 (three) times daily as needed for Cough 15 capsule 0 5 Active Probiotic Product (PROBIOTIC DAILY PO) Take by mouth Active Cholecalciferol (VITAMIN D) 2000 UNITS capsule Take by mouth Active Active Problems No known active problems Social History Tobacco Use Types Packs/Day Years Used Date Smoking Tobacco: Never Alcohol Use Standard Drinks/Week Comments Not Asked 0 (1 standard drink = 0.6 oz pur e alcohol) Comments No Sex and Gender Information Value Date Recorded Sex Assigned at Not on file Legal Sex Female 4:33 PM EST Gender Identity Not on file Sexual Orientation Not on file Last Filed Vital Signs Vital Sign Reading Time Taken Comments Blood Pressure 117/81 07/03/2015 11:48 AM EST Pulse 96 07/03/2015 11:48 AM EST Temperature 36.9 C (98.4 F) 07/03/2015 11:48 AM EST Respiratory Rate 18 07/03/2015 11:48 AM EST Oxygen Saturation 93% 07/03/2015 11:48 AM EST Inhaled Oxygen Concentration - - Weight 65.8 kg (145 lb) 07/03/2015 11:48 AM EST Height 162.6 cm (5' 4 ) 07/03/2015 11:48 AM EST Body Mass Index 24.89 07/03/2015 11:48 AM EST Plan of Treatment Health Maintenance Due Date Last Done Comments CT Colonography 1960 Colonoscopy 1960 Colorectal Cancer Screening 1960 FIT-DNA 1960 FIT 1960 FOBT 1960 Sigmoidoscopy 1960 Pneumococcal Vaccines >50 yo (1 of 1 - PCV) 2012 Annual SDOH Screening 06/25/2024 RSV 50+ and (1 - 1-dose 75+ series) 2037 Breast Cancer Screening Discontinued 12/20/19 16, 07/29/2014, 07/14/2014, Additional history exists Cervical Cancer Screening Discontinued Haemophilus Influenzae Type B (Hib) Vaccine Aged Out No longer eligible based on patient's age to complete this topic Hepatitis A (HepA) Vaccine Aged Out N o longer eligible based on patient's age to complete this topic Hepatitis B (HepB) Vaccine Aged Out N o longer eligible based on patient's age to complete this topic Hepatitis C Screening Discontinued Influenza Vaccine Discontinued Meningococcal ACWY Aged Out No longer eligible based on patient's age to complete this topic Polio (IPV) Aged Out No longer eligi ble based on patient's age to complete this topic Rotavirus (RV) Vaccine Aged Out No lo nger eligible based on patient's age to complete this topic Shingles (Shingrix) Discontinued Tdap/Td Vaccine >11 yo Discontinued Procedures Procedure Name Priority Date/Time Associated Diagnosis Comments MAMMOGRAM SCREENING BILATERAL Routine 12/20/2015 8:08 AM EDT Visit for screening mammogram from Last 3 Months or Most Recently Relevant to Health Maintenance Results * Mammogram Screening Bilateral (12/20/2015 8:08 AM EDT) Anatomical Region Laterality Modality Breast [facility] RAD Mammogra phy 12/22/2015 10:2 9 AM EDT Narrative 12/22/2015 10:29 AM EDT MAMMOGRAPHY REPORT FACILITY: [facility] UNIT/AGE/GENDER: OP AGE: 55 Y SEX: F PATIENT NAME/: SOUTH FLEMING C 1960 UNIT NUMBER: [id number] ACCESSION NUMBER: [id number] DATE OF EXAM: 12/20/2015 EXAMINATION(S): MAMMOGRAM SCREENING BILATERAL CLINICAL HISTORY: Patient is a 55 year old female. The patient is seen for a screening examination. The patient has no personal history of breast cancer. The patient has a history of right cyst aspiration in July, and left excisional biopsy in 1995. The patient has the following family history of breast cancer: paternal grandmother and paternal aunt. COMPARISON STUDIES: The present examination has been compared to prior imaging studies performed at [facility] on 07/29/2014 and 07/14/2014. DIGITAL BILATERAL SCREENING MAMMOGRAM The following views were performed: Bilateral craniocaudal; bilateral mediolateral oblique; and bilateral craniocaudal exaggerated to axilla. Images were reviewed with digital R2 Computer-Aided Detection (CAD). There are scattered fibroglandular densities. There are no suspicious masses, significant calcifications, or other abnormalities seen. IMPRESSION: There is no mammographic evidence of malignancy. Screening Mammogram in 1 year is recommended. BI-RADS Category 1: Negative The patient has been entered into an automated reminder system. <Electronically signed by CHINYERE PATEL M.D.> 12/22/2015 1029 Procedure Note Chinyere Patel MD - 12/22/2015 MAMMOGRAPHY REPORT FACILITY: [facility] UNIT/AGE/GENDER: OP AGE: 55 Y SEX: F PATIENT NAME/: SOUTH FLEMING C 1960 UNIT NUMBER: [id number] ACCESSION NUMBER: [id number] DATE OF EXAM: 12/20/2015 EXAMINATION(S): MAMMOGRAM SCREENING BILATERAL CLINICAL HISTORY: Patient is a 55 year old female. The patient is seen for a screeningexamination. The patient has no personal history of breast cancer. Thepatient has a history of right cyst aspiration in July, and leftexcisional biopsy in 1995. The patient has the following family history of breast cancer: paternal grandmotherand paternal aunt. COMPARISON STUDIES: The present examination has been compared to prior imaging studiesperformed at [facility] on 07/29/2014 and 07/14/2014. DIGITAL BILATERAL SCREENING MAMMOGRAM The following views were performed: Bilateral craniocaudal; bilateralmediolateral oblique; and bilateral craniocaudal exaggerated to axilla.Images were reviewed with digital R2 Computer-Aided Detection (CAD). There are scattered fibroglandular densities. There are no suspicious masses, significant calcifications, or otherabnormalities seen. IMPRESSION: There is no mammographic evidence of malignancy. Screening Mammogram in 1 year is recommended. BI-RADS Category 1: Negative The patient has been entered into an automated reminder system. <Electronically signed by CHINYERE PATEL M.D.> 12/22/2015 1029 Ade Grey DO G MAMMOGRAPHY ORDERABLES Final Result from Last 3 Months or Most Recently Relevant to Health Maintenance Insurance [facility] PPO Care Teams Slack Cooper Relationship Specialty Start Date End Date Mariely Fleming MD [address] [place] [address] PCP - General 07/14/11
--- OUTSIDE RECORDS SUMMARY | 2025-05-14 06:40 | XMS_ITS | Encounter Summary ---
[facility] Address [address] [place] [address] Care Team Providers Care Garage Hand Name Role Phone Ayanna Cooney Primary Care Provider [phone] Encounter Details Date Type Department Care Team (Latest Contact Info) Description 03/30/2025 Travel Social History Tobacco Use Types Packs/Day [...] or training? Not on file Preferred Language Ukrainian 07/03/2022 PHQ-2 Answer Date Recorded Patient Health [...] Info) Description 05/15/2025 2:00 PM EST Appointment [facility]INVASIVE LAB [place] [address] [place] [address] 05/15/2025 3:00 PM EST Appointment [facility]VAS[facility] LAB [place] [address] [place] [address] 06/11/2025 7:45 AM EST Appointment [facility] [place] [address] [place] [address] 07/03/2025 9:00 AM EST Office Visit [facility]STR[facility] [address] [facility] [address] [place] [address] Bonnie More, COUPON COLLECTION CLERK [address] [facility] [address] [place] [address] 09/28/2025 8:30 AM EDT Office Visit [facility] FAMILY MEDICINE [address] [place] [phone] Ayanna Cooney DO [address] [place] [address] documented as of this encounter Visit Diagnoses Not on filedocumented in this encounter Care Teams Garage Hand Relationship Specialty Start Date End Date Ayanna Cooney DO [address] [place] [address] PCP - General Family Medicine 09/18/24 Dr. Samra Angeles Physical Medicine and Rehabilitation 06/06/21 documented as of this encounter
--- OUTSIDE RECORDS SUMMARY | 2025-05-14 06:40 | XMS_ITS | Encounter Summary ---
Author Organization [employer] Address [address] [place] [address] Care Team Providers Care Metal Spray Operator Name Role Phone Unavailable Primary Care Provider Unavailabl e Encounter Details Date Type Department Care Team (Late st Contact Info) Description 11/27/2003 Orders Only [facility] [address] [place] [address] Ning Mccall MD [address] [facility] [place] [address] [place] [address] Social History Tobacco Use Types Packs/Day Years Used Date Smoking Tobacco: Never Assessed Comments Unknown Sex and Gender Information Value Date Recorded Sex Assigned at Not on file Legal Sex Female 1:36 AM CLEANER Gender Identity Not on file Sexual Orientation Not on file documented as of this encounter Plan of Treatment Not on file documented as of this encounter Procedures Procedure Name Priority Date/Time Associated Diagnosis Comments MAMMO DIAGNOSTIC DIGITAL LEFT 11/27/2003 5:19 PM CDT documented in this encounter Results * Mammography diagnostic digital left with CAD (11/27/2003 5:19 PM CDT) Anatomical Region Laterality Modality Breast Left Mammography 11/27/2003 5:19 PM CDT 12/01/2003 12:08 PM CDT Narrative 12/01/2003 12:08 PM CDT DIAGNOSTIC DIGITAL LEFT MAMMOGRAPHY AND LEFT SONOGRAPHY Reason for the Study: Lump found by patient. Parenchymal pattern: The breast tissue is heterogeneously dense, which could obscure detection of small masses. Findings: The exam was done with the [employer]ographe 2000D full-field digital mammography unit. The mammogram was reviewed with the [employer] digital mammography computer-aided detection system. Premium View processing was also applied. Marker was placed where the patient said the lump is. Standard mammo views were made, and a spot compression silver dollar paddle CC view of the palpable area. I see no mass, spiculated focus, or suspicious calcification there or elsewhere in the left breast and no skin thickening, nipple retraction, or abnormal axillary node. Because of the fairly dense parenchyma, Patricia sonography was performed. No mass or shadowing focus was found to correspond to the palpable lesion. Rachel and Imer both examined the patient with ultrasound. There is a 4 mm probable cyst in the subareolar location, but not corresponding to the palpable site. In summary, I see no suspicious lesion. I recommend management based on physical/clinical findings but if not otherwise indicated, one year mammography. IMPRESSION: Benign finding. Recommendation: Decision regarding biopsy should be made on clinical grounds. Procedure Note Reagan Bean Jr., MD - 12/10/2011 DIAGNOSTIC DIGITAL LEFT MAMMOGRAPHY AND LEFT SONOGRAPHY Reason for the Study: Lump found by patient. Parenchymal pattern: The breast tissue is heterogeneously dense, whichcould obscure detection of small masses. Findings: The exam was done with the A[employer]onographe 2000D full-fielddigital mammography unit. The mammogram was reviewed with the [employer] digital mammography computer-aided detection system. PremiumView processing was also applied. Marker was placed where the patient said the lump is. Standard mammoviews were made, and a spot compression silver dollar paddle CC view ofthe palpable area. I see no mass, spiculated focus, or suspiciouscalcification there or elsewhere in the left breast and no skinthickening, nipple retraction, or abnormal axillary node. Because of the fairly dense parenchyma, Patricia sonography was performed.No mass or shadowing focus was found to correspond to the palpable lesion.Rachel and Imer both examined the patient with ultrasound. There is a 4 mmprobable cyst in the subareolar location, but not corresponding to thepalpable site. In summary, I see no suspicious lesion. I recommend management based onphysical/clinical findings but if not otherwise indicated, one yearmammography. IMPRESSION: Benign finding. Recommendation: Decision regarding biopsy should be made on clinicalgrounds. Ning Mccall MD IMG MAMMOGRAPHY ORDE RABLES Final Result documented in this encounter Visit Diagnoses Not on filedocumented in this encounter Additional Source Comments IMPORTANT NOTICES REGARDING PATIENT [...] person's specific written consent to the redisclosure. [id number].[facility]
--- OUTSIDE RECORDS SUMMARY | 2025-05-14 06:40 | XMS_ITS | Encounter Summary ---
[facility] Address [address] [place] [address] Care Team Providers Care Tongue And Groove Machine Operator Name Role Phone Ayanna Cooney DO Primary Care Provider [phone] Encounter Details Date Type Department Care Team (Late st Contact Info) Description 11/01/2024 Results Follow-Up [facility] [address] [facility] [place] [address] Ayanna Cooney DO [address] [facility] [place] [address] Social History Tobacco Use Types [...] or training? Not on file Preferred Language Tristanian 07/03/2022 PHQ-2 Answer Date Recorded Patient Health [...] EST Appointment [facility]INVASIVE LAB [place] [address] [facility] [address] [place] [address] 05/15/2025 3:00 PM EST Appointment [facility] [place] [address] [facility] [address] [place] [address] 06/11/2025 7:45 AM EST Appointment [facility] [place] [address] [facility] [address] [place] [address] 07/03/2025 9:00 AM EST Office Visit [facility] [address] [place] [phone] Bonnie More, CERAMIC COATER MACHINE [address] [facility] [address] [place], [place] [address] 09/28/2025 8:30 AM EDT Office Visit [facility] [address] [facility] [place] [address] Ayanna Cooney DO [address] [place] [address] documented as of this encounter Visit Diagnoses Not on filedocumented in this encounter Care Teams Tongue And Groove Machine Operator Relationship Specialty Start Date End Date Ayanna Cooney DO [address] [place] [address] PCP - General Family Medicine 09/18/24 Dr. Samra Angeles Physical Medicine and Rehabilitation 06/06/21 documented as of this encounter
--- OUTSIDE RECORDS SUMMARY | 2025-05-14 06:41 | XMS_ITS | Clinical Summary ---
Author Organization [facility] Address [address] [place] [address] Care Team Providers Care Integration Lead Name Role Phone Rosita Gunn MD Primary Care Provider [phone] Allergies Active Allergy Reactions Criticality Noted Date Comments Amoxicillin Nausea,Other - please document in the comment field High 09/15/2014 Chest pain, heavy headed Azithromycin Nausea,Other - please document in the comment field High 09/15/2014 Chest pain Baclofen Other - please document in the comment field Low 04/27/2022 Chlorhexidine Hives,Itching,Rash Medium 07/27/2022 Fluorouracil Hives Medium 06/03/2021 Fluticasone-Salmeterol Shortness of breath High 05/25 Montelukast Other - please document in the comment field Medium 05/09/2019 Asthma gets worse Topiramate Other - please document in the comment field High 10/04/2018 Stomach issues and confusion. Tree Nuts Other - please document in the comment field Low 09/15/2014 Medications albuterol 0.63 MG/3ML nebulizer solution albuterol sulfate 0.63 mg/3 mL solution for nebulization Inhale by inhalation route. Active EPINEPHrine (Epipen) 0.3 MG/0.3ML injection syringe epinephrine 0.3 mg/0.3 mL injection, auto-injector Take 1 auto by injection route as directed. Active fluticasone-vilant boom (Breo Ellipta) 200-25 MCG/INH inhaler Inhale 1 puff 1 (one) time each day. 08/28/19 21 Active omeprazole OTC (PriLOSEC OTC) 20 MG EC tablet 1 (one) time each day. Active zolpidem (Ambien) 5 MG tablet 07/06/19 21 Active cholecalciferol (Vitamin D-3) 125 MCG (5000 UT) capsule Take 1 capsule (5,000 Units) by mouth 1 (one) time each day. Taking QOD Active Tezepelumab-ekko (Tezspire) 210 MG/1.91ML solution prefilled syringe Inject 210 mg under the skin every 28 (twenty-eight) days. Active esomeprazole (NexIUM) [address] capsule Take 1 capsule (20 mg) by mouth 1 (one) time each day before breakfast. Do not open capsule. Active albuterol 1.25 MG/3ML nebulizer solution 08/17/19 23 Active Esomeprazole Magnesium 20 MG tablet delayed-release 05/29/20 22 Active Tezepelumab-ekko (TEZSPIRE SC) Tezspire Active methocarbamol (Robaxin) 500 MG tabletIndications: Cervical dystonia Take 1 tablet (500 mg) by mouth 3 (three) times a day if needed for muscle spasms. 60 tablet 1 05/04/20 23 Active rizatriptan [employer] (Maxalt-SENIOR [employer]OTE[employer]ER) 10 MG disintegrating tabletIndications: Other migraine with status migrainosus, not intractable Take 1 tablet (10 mg) by mouth if needed for migraine. May repeat in 2 hours if unresolved. Do not exceed 30 mg in 24 hours. 27 tablet 3 06/11/20 23 Active ondansetron (Zofran) 4 MG tabletIndications: Other migraine with status migrainosus, not intractable Take 1 tablet (4 mg) by mouth every 12 (twelve) hours if needed for nausea or vomiting. 60 tablet 3 06/11/20 23 Active Active Problems Problem Noted Date Diagnosed Date Intractable migraine without aura and without status migrainosus 06/03/2021 Moderate asthma 06/03/2021 Overview (06/03/2021): Adult onset. Heart murmur 06/03/2021 Overview (06/03/2021): MVP Migraines 06/03/2021 Multinodular goiter 03/27/2018 Fatty liver 02/06/2012 Overview (06/03/2021): on CT abdomen, mild. r ovarian cyst Immunizations Immunization Administration Dates Next Due Phyzios COVID-19 Vaccine (Purple Cap) 12 + 03/21/2021 Social History Tobacco Use Types Packs/Day Years Used Date Smoking Tobacco: Never Smokeless Tobacco: Never Tobacco Cessation:Counseling Given: Not Answered PHQ-2 Answer Date Recorded Patient Health Questionnaire-2 Score 0 08/10/2023 PHQ-2A Answer Date Recorded Patient Health Questionnaire-2 Score 0 05/04/2023 Comments Unknown Sex and Gender Information Value Date Recorded Sex Assigned at Female 07/13/2021 9:08 AM EST Legal Sex Female 6:10 PM EDT Gender Identity Female 07/13/2021 9:08 AM EST Sexual Orientation Straight 07/13/2021 9: 08 AM EST Last Filed Vital Signs Vital Sign Reading Time Taken Comments Blood Pressure 114/72 11/02/2023 10:20 AM EDT Pulse 87 11/02/2023 10:20 AM EDT Temperature 36.5 C (97.7 F) 07/18/2021 8:13 AM EST Respiratory Rate 18 11/02/2023 10:20 AM EDT Oxygen Saturation 95% 11/02/2023 10:20 AM EDT Inhaled Oxygen Concentration - - Weight 68 kg (150 lb) 11/02/2023 10:20 AM EDT Height 162.6 cm (5' 4 ) 11/02/2023 10:20 AM EDT Body Mass Index 25.75 11/02/2023 10:20 AM EDT Plan of Treatment Health Maintenance Due Date Last Done Comments [facility]-Depression Screening 1962 [facility]-Infant/Child/Adol SDOH Screenings 1962 [facility]- SDOH Screenings 1980 [facility]-Adult SDOH Screenings 1980 [facility]-Pap Smear 09/21/1983 [facility]-Cervical Cancer Screening 1992 [facility]-HPV/Cotest 1992 CT Colonography 09/21/2007 Colonoscopy 09/21/2007 FIT-DNA 09/21/2007 FIT 09/21/2007 FOBT 09/21/2007 Sigmoidoscopy 09/21/2007 [facility]-Colorectal Cancer Screening 09/21/2007 [facility]-Pneumococcal Vaccine: 50+ Years (2 of 2 - PCV) 2012 06/25/2007 [facility]-Zoster Vaccines (2 of 2) 06/28/2021 05/03/2021 [id number] Vaccine (6 - 2024- season) 2025 03/19/2023, 04/22/2022, 03/21/2021, Additional history exists [facility]-Influenza Vaccine (#1) 02/23/202503/19, 03/18/2022, 06/28/2021, Additional history exists [facility]-DTaP,Tdap,and Td Vaccines (3 - Td or Tdap) 10/04/2030 10/04/2020, 2010 [facility]-Hepatitis A Vaccines Aged Out 08/26/2018, 12/23 No longer eligible based on patient's age to complete this topic [facility]-Breast Cancer Screening Discontinued 08/2019, 02/19/2019, 03/07/2017, Additional history exists [facility]-RSV Vaccine: 60+ Years or Completed 06/24/2023 HPV Vaccines Aged Out No longer eligi ble based on patient's age to complete this topic [facility]-HIB Vaccines Aged Out No longer e ligible based on patient's age to complete this topic [facility]-IPV Vaccines Aged Out No longer e ligible based on patient's age to complete this topic [facility]-Rotavirus Vaccines Aged Out No lo nger eligible based on patient's age to complete this topic Insurance [employer] Care Teams Integration Lead Relationship Specialty Start Date End Date Rosita Gunn MD [address] [place] [phone] PCP - General 01/03/21
--- OUTSIDE RECORDS SUMMARY | 2025-05-14 06:41 | XMS_ITS | Data Portability ---
Author Organization DARIANA SAUL [employer] Address [address] [facility] [address] [place] [address] Care Team Providers Care Card Cutter Name Role Phone IVIS CHO Primary Care Provider CUAUHTEMOC ST Account Resolution Specialist [phone] SHU PHELPS Professional Volleyball Player ODELL KANG Conduit Worker FRAN BLACK Patient Services Assistant KAN YING Phys. [facility] Re[facility] [phone] Assessment Encounter Date Assessment Date Assessment LastModified by Organization Details LastModified Time 05/13/2024 05/13/2024 Note to patient: The Century Cures Act makes medical notes like these available to patients in the interest of transparency. However, be advised this is a medical document. It is intended as peer to peer communication. It is written in medical language and may contain abbreviations or verbiage that are unfamiliar. It may appear blunt or direct. Medical documents are intended to carry relevant information, facts as evident, and the clinical opinion of the practitioner. [email or web address] Not available 05/13/2024 08:47:27 Plan of Treatment Reminders Order Date Submit Date Provider Last Modified By Organization Details Last Modified Time Details Appointments PROVIDER INJECTION 2024 09:00A M KAN YING MD Not available Not available Not available Lab None recorded. Referral None recorded. Procedures None recorded. Surgeries None recorded. Imaging None recorded. Medication Orders fluticaso ne propionat e 50 mcg/actua tion nasal spray,esme pension 2023 024 [facility] [address] [place], [address], 05/13/2024 10:13:11 Patient TargetsNo targets recorded. Patient Instructions Encounter Date Encounter Id Patient Instructions Last Modified By Organization Details Last Modified Time 09/04/2024 [id number] Discussed risks, benefits, and alternative treatment options with patient. The most frequently reported adverse reactions following injection of BOTOX for chronic migraine include neck pain, headache, eyelid ptosis, migraine, muscular weakness, musculoskeletal stiffness, bronchitis, injection-site pain, musculoskeletal pain, myalgia, facial paresis, hypertension, and muscle spasms. Total time spent preparing to see patient by reviewing chart, independently obtaining history, performing physical examination, ordering medications tests or procedures, counseling and educating the patient, communicating with other healthcare professionals, and documenting clinical information into the health record, in minutes: [id number] (15-29) [id number] (30-44) 50818 (45-59) 71150 (60-74) 68673 (10-19) 24153 (20-29) [id number] (30-39) 94099 (40-54) [email or web address] Not available 08/11/2024 15:16:29 Reason for Referral None Reported. Results Created Date Observation Date Name Description Value Unit Range Abnormal Flag Note LastModifiedBy Organization Detail LastModifiedTime 03/05/2003/05/2025 US, abdom en, compl ete [place] ha[place] [address] [place] [address] Love hola Name: BLOSSOM simental : 963 Love simentla 49 Orderi ng Provid er: CUAUHTEMOC Rodrigues EXAM DATE: 2024 EXAM: US ABDOME N COMPLE TE CLINIC AL INFORM ATION: Fatty liver TECHNI QUE: Multip le sonogr aphic images of the abdome n were obtain ed. COMPAR KARINE: None. FINDIN GS: LIVER: Diffus e fatty metamo rphosi s of the liver is noted. No obviou s focal lesion . BILIAR Y SYSTEM : Gallbl adder is normal in size and wall thickn ess. 5 mm fillin g defect compat ible with polyp. No intrah epatic biliar y dilata tion. CBD measur ement = mm. Normal in size. PANCRE : Well visual ized. Normal in size and echoge nicity . No obviou s focal lesion . RIGHT KIDNEY : Length = 11.1 cm. No hydron ephros is, mass or stone. LEFT KIDNEY : Length = 10.3 cm. No hydron ephros is, mass or stone. 16 mm cyst SPLEEN : Length = 11 cm. Normal in size echoge nicity and echote xture. No obviou s focal lesion . AORTA: Normal in diamet er and course withou t eviden ce of aneury sm. IMPRES MARTHA: 1. Fatty liver 2. Small gallbl adder polyp. 3. Simple cyst left kidney Interp reted By: Fran Perdomo MD Electr onical ly Signed By: Fran Perdomo MD on 025 10:11 AM [facility] [address], [place], [address], 03/17/2025 16:37:36 Result Notes None recorded. Problems Name Problem SNOMED Code Status Onset Date Resolution Date Notes Provider Name and Address Organization Details Recorded Time History of pulmonary embolus 014304810 Active 2011Jun 2011- Coumadin x 6 months, now daily baby ASA. Negative w/u IVIS CHO MD [address] [place] [address], [address] , [facility] 2 11:40:17 Diverticu losis of colon 893141075 [address] IVIS CHO MD [address] [place] [address], [address] , [facility] 2 09:10:20 Routine gynecolog ic examinati on done 78191858606 101 [facility] 09:24:58 Irritable bowel syndrome 57154965 Active 2021 IVIS CHO MD [address] [place] [address], [address] , [facility] 2 08:29:40 Gastroeso phageal reflux disease without esophagit is 304233003 Active 2021 IVIS CHO MD [address] [place] [address], [address] , [facility] 2 08:29:47 Migraine without aura 50227125 Active 2021 IVIS CHO MD [address] [place] [address], [address] , [facility] 2 08:30:00 Severe persisten t asthma 734907654 Active 2021 IVIS CHO MD [address] [place] [address], [address] , [facility] 2 08:30:14 Allergic rhinitis 83738132 Active 2021 IVIS CHO MD [address] [place] [address], [address] , [facility] 2 08:36:39 Spasmodic torticoll is 35826309 Active 2021 IVIS CHO MD [address] [place] [address], [address] , [facility] 2 09:45:18 Degenerat ion of cervical intervert ebral disc 45706593 Active 2021 IVIS CHO MD [address] [place] [address], [address] , [facility] 2 09:45:48 Acquired trigger finger of right middle finger 99406424862 9105 Active 2021 IVIS CHO MD [address] [place] [address], [address] , [facility] 2 10:00:24 Vitamin D deficienc y 03385865 Active 2021 IVIS CHO MD [address] [place] [address], [address] , [facility] 2 09:08:10 Cobalamin deficienc y 881924508 Active 2021 IVIS CHO MD [address] [place] [address], [address] , [facility] 2 09:09:40 Mitral valve prolapse 141723788 Active 2021 IVIS CHO MD [address] [place] [address], [address] , [facility] 2 09:10:49 Osteopeni a 000689714 Active 2021 IVIS CHO MD [address] [place] [address], [address] , [facility] 2 09:11:07 Contact dermatiti s caused by plants 660867247 Active 2021 IVIS CHO MD [address] [place] [address], [address] , [facility] 2 14:39:12 Screening for cardiovas cular system disease Active 2021 IVIS CHO MD [address] [place] [address], [address] , [facility] 2 08:08:42 Prediabet es 085367991 Active 2021 A1c: 07/18/2023 5.8 IVIS CHO MD [address] [place] [address], [address] , [facility] 4 08:01:39 Insomnia 822124892 Active 2021 IVIS CHO MD [address] [place] [address], [address] , [facility] 2 10:04:20 Clavicle pain 538013974 Active 2021 IVIS CHO MD [address] [place] [address], [address] , [facility] 2 10:07:33 Pain of toe of left foot 85152316908 9108 Active 2021 IVIS CHO MD [address] [place] [address], [address] , [facility] 2 10:11:44 Lesion of liver 592337075 Active 2022 IVIS CHO MD [address] [place] [address], [address] , [facility] 3 09:20:10 Multinodu lar goiter 883361146 Active 2022 IVIS CHO MD [address] [place] [address], [address] , [facility] 3 09:21:26 Eczema 71819749 Active 2022 IVIS CHO MD [address] [place] [address], [address] , [facility] 3 10:20:37 Celluliti s 010569469 Active 2022 IVIS CHO MD [address] [place] [address], [address] , [facility] 3 09:48:13 Pain of left hip joint 20358299715 9100 Active 2022 IVIS CHO MD [address] [place] [address], [address] , [facility] 3 08:09:31 Steatotic liver disease 778544471 Active 2022 IVIS CHO MD [address] [place] [address], [address] , [facility] 4 08:51:24 Benign paroxysma l positiona l vertigo 653788430 Active 2023 IVIS CHO MD [address] [place] [address], [address] , [facility] 4 10:12:15 Problem Notes None recorded. Procedures Surgical History Date Name Laterality Status Provider Name and Address Organization Details Recorded Time 025 Occipital Nerve Injections completed KAN YING MD [address] [place] [address], [address], [facility] 03/11/2025 08:57:10 025 Injection - Cervical Dystonia completed KAN YING MD [address] [place] [address], [address], [facility] 03/11/2025 08:56:52 025 Occipital Nerve Injections completed KAN YING MD [address] [place], [address], [facility] 12/08/2024 13:47:45 025 Injection - Cervical Dystonia completed KAN YING MD [address] [place], [address], [facility] 12/08/2024 13:47:37 025 Injection - Cervical Dystonia completed KAN YING MD [address] [place], [address], [facility] 09/04/2024 12:21:59 024 Injection - Cervical Dystonia completed KAN YING MD [address] [place], [address], [facility] 05/09/2024 08:50:58 024 Botox Migraine - January completed KAN YING MD [address] [place], [address], [facility] 02/07/2024 08:30:04 024 Most Recent Mammogram completed Jazz Jackson [facility] 07/24/2023 08:05:04 023 Destruction Premalignant Lesion(s) completed Rosio Shell [facility] 04/30/2023 07:47:02 023 OT Evaluation - Moderate complexity completed ABIMAEL GUY JR, OTR/L, CHT [address] [place], [address], [facility] 02/05/2023 10:51:03 023 OT Therapeutic Exercise completed ABIMAEL GUY JR, OTR/L, CHT [address] [place], [address], [facility] 02/05/2023 10:51:29 023 Op Note completed RAJEEV MONSALVE MD [address] [place], [address], [facility] 02/01/2023 08:56:28 023 excision of bilateral fallopian tubes and ovaries completed Rosio Shell [facility] 04/30/2023 07:34:41 023 DXA Low Bone Mass 1 - No Tx completed JOSÉ MIUGEL JOSHI MD [address] [place], [address], [facility] 09/01/2022 14:32:00 023 Most Recent Bone Density completed IVIS CHO MD [address] [place], [address], [facility] 07/23/2023 08:50:51 023 ROBOTIC ASSISTED BILATERAL SALPINGO OOPHORECTOMY (SURG) completed Not Available [facility] 07/05/2022 13:37:21 023 OT Therapeutic Exercise completed JIE PAPPAS OTR/L, CHT [address] [place], [address], [facility] 07/04/2022 08:49:15 023 OT Manual Therapy completed JIE PAPPAS OTR/L, CHT [address] [place], [address], [facility] 07/03/2022 17:13:38 023 PT Paraffin Bath completed JIE PAPPAS OTR/L, CHT [address] [place], [address], [facility] 07/03/2022 17:13:38 022 OT Therapeutic Exercise completed JIE PAPPAS OTR/L, CHT [address] [place], [address], [facility] 06/21/2022 15:45:08 022 OT Manual Therapy completed JIE PAPPAS, OTR/L, CHT [address] [place], [address], [facility] 06/21/2022 15:45:07 022 PT Paraffin Bath completed JIE PAPPAS, OTR/L, CHT [address] [place], [address], [facility] 06/21/2022 15:45:10 OT Evaluation - Moderate complexity completed JIE PAPPAS, OTR/L, CHT [address] [place], [address], [facility] 06/09/2022 11:40:53 Op Note completed RAJEEV MONSALVE MD [address] [place], [address], [facility] 06/06/2022 07:42:03 Transvaginal Ultrasound; Non-OB completed SHU PHEPLS MD [address] [place] [address], [address], [facility] 05/16/2022 13:41:55 Date of Last Pap Smear completed Loretta Martinez [facility] 06/06/2022 09:41:02 Injection - Trigger Finger, Ortho completed RAJEEV MONSALVE MD [address] [place] [address], [address], [facility] 02/01/2022 12:14:38 [place] [address] [place] [address], [address], [facility] 01/17/2022 08:30:50 Botox Injection - Migraine completed AZUL ARGUELLES MD [facility] [place], [address], [facility] 05/03/2021 09:16:14 Botox Injection - Migraine completed AZUL ARGUELLES MD [address] [place] [address], [address], [facility] 04/21/2021 16:21:44 Botox Injection - Migraine completed AZUL ARGUELLES MD [address] [place], [address], [facility] 01/21/2021 17:00:03 021 Botox Injection - Migraine completed AZUL ARGUELLES MD [address] [place], [address], [facility] 11/03/2020 17:56:40 021 Botox Injection - Migraine completed AZUL ARGUELLES MD [address] [place], [address], [facility] 10/28/2020 15:44:07 021 Allergy Injection completed Raejean Perraut [facility] 09/09/2020 15:23:57 021 Vial Preparation completed Raejean Perraut [facility] 09/07/2020 11:14:18 021 Botox Injection - Migraine completed AZUL ARGUELLES MD [address] [place], [address], [facility] 07/22/2020 13:38:41 021 Allergy Injection completed TEDDY GRAF, TOOL CHASER [address] [place], [address], [facility] 07/21/2020 10:27:49 021 Vial Preparation completed Raejean Perraut [facility] 07/20/2020 12:03:10 020 Allergy Injection completed Raejean Perraut [facility] 06/04/2020 12:51:34 020 Vial Preparation completed Raejean Perraut [facility] 06/01/2020 12:01:41 020 Allergy Testing completed TEDDY GRAF, TOOL CHASER [address] [place], [address], [facility] 05/12/2020 10:41:14 020 Botox Injection - Migraine completed AZUL ARGUELLES MD [address] [place], [address], [facility] 04/30/2020 11:49:31 020 Nasolaryngoscopy completed Margarito Black [facility] 04/21/2020 12:06:02 Botox Injection - Migraine completed ZAUL ARGUELLES MD [address] [place], [address], [facility] 02/05/2020 13:53:47 Botox Injection - Migraine completed AZUL ARGUELLES MD [address] [place], [address], [facility] 10/30/2019 15:03:31 Tympanogram completed DIEGO SHETTY, AUD [address] [place], [address], [facility] 08/05/2019 10:50:31 020 Audiogram completed DIEGO SHETTY AUD [address] [place], [address], [facility] 08/05/2019 10:50:29 Endoscopy Nasal; Diagnostic completed Rajani Gomez [facility] 08/05/2019 11:31:00 Transvaginal Ultrasound; Non-OB completed SHU PHELPS MD [address] [place], [address], [facility] 07/08/2019 13:55:13 Partial hysterectomy completed Ning Swift [facility] 10/19/2020 11:42:49 lumpectomy of breast completed [facility] 07/08/2019 13:28:31 tonsillectomy completed [facility] 07/08/2019 13:28:49 delivery completed [facility] 07/08/2019 13:28:56 Cataract Surgery completed Jazz Jackson [facility] 06/08/2022 09:50:38 release of trigger finger completed Rosio Ramírez [facility] 04/30/2023 07:33:46 Imaging Results None recorded. Procedure Notes None recorded. Medical Equipment None Reported. Allergies Allergen ID Allergen Name Allergen Category Reaction Reaction Severity Criticality Documentation Date Start Date Code Code System Note Provider Name and Address Organization Details Recorded Time 279902 amoxicill in medicatio n Not available Not available Not available 07/08/2019 723 RxNorm Nadine Miller [facility] 0 13:24:04 449805 azithromy ezra medicatio n nausea Not available Not available 08/05/2019 08895 RxNorm Bhaskar Woodall [facility] 0 10:38:23 009006 Topamax medicatio n Not available Not available Not available 10/02/2019 01879 3 RxNorm Alba Rubinfordn er [facility] 0 08:51:18 355757 baclofen medicatio n Not available Not available Not available 01/17/2022 1292 RxNorm Ning Mann [facility] 2 09:32:05 069512 Carac medicatio n Not available Not available Not available 05/16/2022 14382 3 RxNorm Eliza David [facility] 2 13:06:28 987375 chlorhexi dine medicatio n hives rash Not available Not available Not available 08/09/2022 2358 RxNorm Jazz Jackson [facility] 3 09:02:39 Medications Name Sig Start Date Stop Date Status Note LastModified by Organization Details LastModified Time methocarbam ol 500 mg tablet TAKE 1 TABLET BY MOUTH THREE TIMES DAILY NEEDED FOR MUSCLE SPASM active Not Available Not Available No t Available albuterol sulfate 0.63 mg/3 mL solution for nebulizatio n Inhale by inhalatio n route. 08/10 completed Not Available Not Available Not Available prednisone 10 mg tablet TAKE 6 TABLETS ON THE FIRST DAY THEN DECREASE BY 1 TABLET EACH DAY UNTIL ALL ARE TAKEN, DIRECTED ON PACKAGE INSTRUCTI ONS -TAKE WITH FOOD 01/17 completed Not Available Not Available Not Available doxycycline hyclate 100 mg capsule Take 1 capsule twice a day by oral route for 7 days. 01/16 completed Not Available Not Available Not Available clindamycin HCl 300 mg capsule TAKE 1 CAPSULE BY MOUTH 3 (THREE) TIMES A DAY FOR 10 DAYS. 01/17 completed Not Available Not Available Not Available albuterol sulfate 2.5 mg/3 mL (0.083 %) solution for nebulizatio n 08/17 completed Not Available Not Available Not Available fluconazole 150 mg tablet Take 1 tablet every day by oral route. 01/16 completed Not Available Not Available Not Available benzonatate 200 mg capsule TAKE 1 CAPSULE BY MOUTH 3 (THREE) TIMES A DAY IF NEEDED FOR COUGH. active Not Available Not Available No t Available albuterol sulfate 1.25 mg/3 mL solution for nebulizatio n Inhale 3 mL 3 times a day by inhalatio n route. active Not Available Not Available No t Available tolterodine ER 4 mg capsule,ext ended release 24 hr TAKE 1 CAPSULE BY MOUTH DAILY 08/09 completed Not Available Not Available Not Available ondansetron HCl 4 mg tablet TAKE 1 TABLET BY MOUTH EVERY 12 HOURS NEEDED FOR NAUSEA FOR VOMITING active Not Available Not Available No t Available rizatriptan 10 mg tablet TAKE 1 TABLET (10 MG TOTAL) BY MOUTH 1 (ONE) TIME IF NEEDED FOR MIGRAINE FOR UP TO 1 DOSE. MAY REPEAT IN 2 HOURS IF UNRESOLVE D. DO NOT EXCEED 30 MG IN 24HRS 05/16 completed Not Available Not Available Not Available sulfamethox azole 800 mg-trimetho prim 160 mg tablet Take 1 tablet every 12 hours by oral route for 7 days. 01/16 completed Not Available Not Available Not Available aspirin 81 mg tablet,aaliyah yed release Take 1 tablet every day by oral route. 05/03 completed Not Available Not Available Not Available tramadol 50 mg tablet TAKE 1 TABL PO Q 4-6 HRS PRN FOR SEVERE POST SURGICAL PAIN 07/24 completed Not Available Not Available Not Available triamcinolo ne acetonide 0.1 % topical cream APPLY A THIN LAYER TO THE AFFECTED AREA(S) BY TOPICAL ROUTE 2 TIMES PER DAY PRN 01/16 completed Not Available Not Available Not Available meloxicam 7.5 mg tablet TAKE 1 TABLE PO QD WITH FOOD REGARDLES S OF PAIN LEVEL FOR 1 WEEK. THEN TAKE 1 TABLET PO QD ONLY PRN FOR PAIN RELIEF THEREAFTE R 07/24 completed Not Available Not Available Not Available baclofen 10 mg tablet Take 1 tablet every day by oral route at bedtime for 30 days. 05/03 completed Not Available Not Available Not Available rizatriptan 10 mg disintegrat ing tablet 1 tablet at onset migraine; may repeat p2h PRN, max 2/24h active Not Available Not Available No t Available erythromyci n 5 mg/gram (0.5 %) eye ointment 05/16 completed Not Available Not Available Not Available promethazin e 25 mg tablet Take 1 tablet every 4 hours by oral route. 01/16 completed Not Available Not Available Not Available olive oil active Not Available Not Ana ilable Not Available gabapentin 300 mg capsule Take 1 capsule twice a day by oral route. 02/02 completed Not Available Not Available Not Available zolpidem 5 mg tablet TAKE 1 TABLET BY MOUTH AT NIGHT NEEDED FOR SLEEP active Not Available Not Available No t Available gabapentin 100 mg capsule TAKE 1 CAPSULE PO QHS FOR 1 WEEK 07/24 completed Not Available Not Available Not Available epinephrine 0.3 mg/0.3 mL injection, auto-inject or INJECT 1 AUTO INJECTOR INTO THE MUSCLE DIRECTED IF NEEDED FOR ALLERGIC REACTION 12/16 completed Not Available Not Available Not Available methylpredn isolone 4 mg tablets in a dose pack TAKE 6 TABLETS ON THE FIRST DAY THEN DECREASE BY 1 TABLET EACH DAY UNTIL ALL ARE TAKEN, DIRECTED ON PACKAGE INSTRUCTI ONS 01/17 completed Not Available Not Available Not Available albuterol sulfate HFA 90 mcg/actuati on aerosol inhaler INHALE 2 PUFFS BY MOUTH EVERY 4 HOURS NEEDED FOR WHEEZING FOR SHORTNESS OF BREATH active Not Available Not Available No t Available ondansetron 4 mg disintegrat ing tablet 1 tablet on tongue each 4 hours as needed for nausea 05/13 completed Not Available Not Available Not Available fluticasone propionate 50 mcg/actuati on nasal spray,suspe nsion [place] 2 sprays every day by intranasa l route. active Not Available Not Available No t Available neomycin 3.5 mg/g-polymy cindi B 10,000 unit/g-dexa meth 0.1 % eye oint 05/13 completed Not Available Not Available Not Available Prilosec OTC 20 mg tablet,aaliyah yed release Take 1 tablet every day by oral route. 06/08 completed Not Available Not Available Not Available flaxseed oil 1200mg 10/19 completed Not Available Not Available Not Available methocarbam ol 08/05 completed Not Available Not Available Not Available Vitamin D 10/01 completed Not Available Not Available Not Available coenzyme Q10 02/01 completed Not Available Not Available Not Available Prilosec 10/01 completed Not Available Not Available Not Available rizatriptan 08/05 completed Not Available Not Available Not Available fiber TID 05/03 completed Not Available Not Available Not Available Stool Softener PRN 02/01 completed Not Available Not Available Not Available Ambien 10/01 completed Not Available Not Available Not Available Vitamin D3 2000iu once a day active Not Available Not Available No t Available Zyrtec 05/03 completed Not Available Not Available Not Available gabapentin 10/01 completed Not Available Not Available Not Available Aspir-Low 10/01 completed Not Available Not Available Not Available Miralax PRN 05/03 completed Not Available Not Available Not Available multivitami n active Not Available Not Available Not Available Mucinex PRN 05/03 completed Not Available Not Available Not Available Dairy Aid active Not Available Not Ana ilable Not Available Xifaxan 550 mg tablet Take 1 tablet 3 times a day by oral route for 14 days. 01/17 completed Not Available Not Available Not Available sodium,pota ssium,mag sulfates 17.5 gram-3.13 gram-1.6 gram oral soln TAKE DIRECTED active Not Available Not Available No t Available Linzess 145 mcg capsule Take 1 capsule every day by oral route for 30 days. 09/13 completed Not Available Not Available Not Available Breo Ellipta 01/17 completed Not Available Not Available Not Available IBgard PRN 05/03 completed Not Available Not Available Not Available Flonase Allergy Relief 08/10 completed Not Available Not Available Not Available Breo Ellipta 200 mcg-25 mcg/dose powder for inhalation Inhale 1 puff every day by inhalatio n route. 01/26 completed Not Available Not Available Not Available Nexium 24HR 20 mg capsule,del ayed release Take 1 capsule every day by oral route. active Not Available Not Available No t Available Sutab 1.479-0.188 -0.225 gram tablet as directed 02/01 completed Not Available Not Available Not Available omega 3 1,000 mg-dha 250 mg-epa 750 mg/5 mL oral liquid Take by oral route. 07/24 completed Not Available Not Available Not Available Lalo 05/03 completed Not Available Not Available Not Available Voquezna 10 mg tablet TAKE 1 TABLET BY MOUTH ONCE DAILY FOR HEARTBURN /REFLUX active Not Available Not Available No t Available Vitals Date Recorded Body height Body mass index (BMI) Body weight Heart rate Systolic And Diastolic Provider Name and Address Organization Details Last Updated DateTime 09/04/2024 162.56 cm 24.9 kg/m2 59677.89 g 81 /min 118/76 mm[Hg] [facility] 09/04/2024 11:51:24 Date Recorded Body height Heart rate Systolic And Diastolic Provider Name and Address Organization Details Last Updated DateTime 12/08/2024 162.56 cm 95 /min 128/82 mm[Hg] [facility] 12/08/2024 13:04:31 Date Recorded Body height Heart rate Systolic And Diastolic Provider Name and Address Organization Details Last Updated DateTime 03/11/2025 162.56 cm 95 /min 118/82 mm[Hg] [facility] 03/11/2025 08:04:10 Date Recorded Body height Body mass index (BMI) Body weight Body temperature Heart rate Oxygen saturation Systolic And Diastolic Provider Name and Address Organization Details Last Updated DateTime 4 162.56 cm 24.9 kg/m2 81867.8 9 g 97.8 [degF] 81 /min 98 % 120/68 mm[Hg] [facility] 4 10:07:56 Social History Question Answer Notes LastModified by Organizat ion Details LastModified Time Tobacco Smoking Status [facility] 13:27:50 What Is Your Level Of Caffeine Consumption? None Information not available 07/08/2019 How Much Tobacco Do You Chew? None [email or web address] Information not available 07/15/2019 Live Alone Or With Others? With Others Information not available 10/02/2019 Marital Status Informatio n not available 07/08/2019 What Was The Date Of Your Most Recent Tobacco Screening? 07/24/2023 Information not available 07/24/2023 How Much Tobacco Do You Smoke? No [email or web address] Information not available 08/04/2019 Sex: Female Functional Status Question Answer Note LastModified by Organizat ion Details LastModified Time Do you use any illicit or recreational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 worsen Benign par oxysmal positional vertigo 396120624 H81.10 Jorge maneuver handouts given to patient. She will complete exercises at home. If no improvemen t, she will call back so we can place referral to ENT. [id number] KAN YING MD [facility] MED[facility]INE [facility] ATION CLOS[facility] [address] [place] [phone] 09/04/2024 11:32:07 09/05/2024 07:11:57 Chronic migraine without aura 6452599496 62271 G43.709 Continue rizatripta n and Zofran as needed Spasmodic torticollis 74 420577 G24.3 Performed third round of botulinum toxin injection for cervical dystonia today. 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 Also performed perineural injection with botulinum toxin around the occipital nerve as it exits from the inferior oblique's capitis muscle. Continue dry needling as long as beneficial as needed. Follow-up in [id number] MD GASTRO [facility] [address] [facility] [place] [address] 01/26/2025 14:49:16 01/26/2025 16:04:43 Abdominal bloating 642433372 R14.0 54447 Discussed empiric treatment of possible SIBO with antibiotic . The patient relates prior issues with antibiotic s and requires pretreatme nt with diflucan to prevent yeast infections .Will obtain hydrogen breath testCan do daily probiotic. She can also restart IBgard as this is given her improvemen t in symptoms in the past.Will arrange colonoscop y based on patient's family history and recommenda tions after last patient's colonoscop y in 2021 for 3-year follow-up. She has a history of chronic heartburn. Her last EGD in 2021 overall was unremarkab le. She would like to repeat her EGD and we will arrange this the time of her colonoscop y. Will start Voquezna 10 mg once daily.The patient has requested repeat imaging of her liver with her history of fatty liver. Arrange complete abdominal ultrasound .Will obtain stool studies with pancreatic elastase and fecal calprotect in. Generalize d abdominal pain 388195484 R10.84 582682 Steatotic liver disease 529272230 K76.0 9401 Heartburn 76867432 R12 364950 [id number] KAN YING MD [facility] [address] [place] [address] 03/11/2025 07:43:28 03/13/2025 08:17:40 Isolated cervical dystonia 409477233 G24.3 322868 Cervico-oc cipital neuralgia 43693224 M54.81 52274408 Perform same regimen as last round but with reduction and specific muscles to allow for a maximum of 200 units with emphasis on the occipital region. Patient felt much benefit with the addition of the diluted subcutaneo us botulinum toxin in the occipital region at area of allodynia. Also performed perineural injection with botulinum toxin around the occipital nerve as it exits from the inferior oblique's capitis muscle. Third change was left SCM. Repeated those today. Follow-up in 3 months Health Concerns Section Related Observation LastModified by Organization Detai ls LastModified Time None Recorded Concern Status LastModified by Organization Details LastModified Time None Recorded Advance Directives Directive None Recorded Payers Insurance Date Sequence Insurance Name Policy Number Policy Posey Covered Member ID Posey Member ID Guarantor Name 03/08/2025 1 [place] [id number] Triston Nicholas [id number] Blossom Fleming 04/15/2020 PAYMENT PLAN Blossom Fleming Notes Date Note Type Note Provider Name and Address Organization Details Recorded Time 05/13/2024 text/html Presents with complaints of bilateral ear pressure that has been occurring intermittently for the past 4 days. She does have a history of allergies and did receive allergy injections last year. States now she just takes an oral antihistamine. States that she feels like sound has been amplified recently. States alternating ears on which is more uncomfortable. States today her right ear is more painful than her left. Also complains of dizziness that started a couple of days ago when she was moving her head. States she gets dizzy to the point of nausea. She does report dizziness when lying in bed and turning her head. No previous history of BPPV. IVIS CHO MD [address] [place] [address], [phone], [facility] 05/13/2024 10:19:12 09/04/2024 text/html 63-year-old female with cervical dystonia here for repeat botulinum toxin injections. Significant improvement in neck pain and range of motion noted during the last round. She had to cancel her 3 month appointment due to weather and is now 3 to 4 weeks delayed. She noted significant increase in muscle tightness and pain over the past few weeks and is taking daily muscle relaxers. She also suffered an allergic response today while in the waiting room from [facility] and took 2 inhalers and is recovered. KAN YING [facility] [place], [phone], [facility] 09/04/2024 12:23:19 12/08/2024 text/html 64-year-old female with cervical dystonia here for repeat Botox injection. Last round helpful but not as helpful as second round. Continues to have sensitivity on the posterior scalp and inability to lay on her left side because of it. Continues to work with physical therapy for dry needling which is very helpful. KAN YING MD [address] [place] [address], [phone], [facility] 12/08/2024 13:50:02 01/26/2025 text/html Visit today is being conducted via telehealth using both audio/video. The patient confirms that he/she is physically located in [place] at the time of this visit. Patient has expressed an understanding of audio/video telehealth as a visit and has consented. Reason for new patient visit: IBS flareSelf-referred The patient is a 64 year old who is being seen as a teleahealth visit for intake diagnosis of IBS flare. The patient has been seen in the office before for IBS. Her last office visit was over 3 years ago. Overall IBS symptoms are not as severe as she had in years past. Has had some issues with constipation symptom. Was using miralax a few times per week. Every 3-4 weeks, she will have abdominal pain, bloating, and diarrhea. Symptoms can last 4 hours or more. She is not using NSAIDs. No hematochezia or melena. Evaluations in 2021 with EGD and colonoscopy overall unremarkable. She has had unremarkable celiac labs. There is a family history of colon cancer in her father and also family members with liver cancer or uterine cancer. The patient was referred to a genetic counselor. She was told not to be affected for Esquivel syndrome. Patient also has a history of a liver lesion that was found to be a simple hepatic cyst last by MRI in 2022. Noted on MRI was moderate severe fatty liver. Liver enzymes are normal, but she has seen a slight increase within the normal range of AST and ALT. Her fib 4 based on last labs suggested fibrosis stage F 0-1. CU[address] MD [facility] [place], [phone], [facility] 01/26/2025 15:44:40 03/11/2025 text/html 64-year-old female with cervical dystonia and occipital neuralgia here for repeat Botox injections. Last regimen was extremely beneficial with the addition of the perineural occipital block in the subcutaneous injection in the occipitalis region. Also added the left SCM to improve range of motion. All of those changes were beneficial. No side effects reported. She noted less sensitivity and more ability to lay her head and applied pressure to the posterior scalp against the pillow with this regimen. KAN YING MD [address] [place], [phone], [facility] 03/11/2025 08:59:06 OBGyn Episode No OBEpisode recorded.
--- NOTE | 2025-05-14 06:43 | CT_ITS ---
APPROVED REPORT Protocol Manager: CLINICAL INDICATION Coronary risk evaluation and stratification TECHNIQUE Image Acquisition: A 128 slice MDCT scanner (Canvasa View) was used for data acquisition. A noncontrast coronary calcium scan was performed. A CT attenuation threshold of 130 Hounsfield units (HU) was used for the detection of calcium in contiguous voxels of 1 sq mm in area to be counted as individual lesions. A tube voltage of 120 KVp was used. The patient received no medications prior to the coronary calcium CT. Image Reconstruction Transaxial images were reconstructed at 0.67 mm slide thickness. Data was reviewed interactively on an advanced workstation capable of 2 and 3-dimensional displays in all conventional reconstruction formats, including multiplanar reformations, maximum intensity projections, curved multiplanar reformations, and volume rendered reconstructions. When applicable, selected routine images describing the relevant coronary anatomy and pathology were saved and sent to PACS. Complications None Technical Quality Overall image quality was good. Total DLP (Dose-Length Product) is 216 mGy-cm. The reported value represents the total of one or more individual components during the CT acquisition of this date and at this time, and as such, the same value may appear in more than one CT report depending on the interpreting/reporting physicians. COMPARISON None FINDINGS CT Coronary Calcium Scoring LMA (Left Main Artery) = 0 LAD (Left Anterior Descending) = 0 LCX (Left Coronary Circumflex) = 0 RCA (Right Coronary Artery) = 0 Total Calcium Score = 0 using the AJ-130 method. There is no identifiable calcification in the aortic valve, mitral annulus or mitral valve, pericardium, or myocardium. IMPRESSION -Coronary artery calcification is absent. -Total Calcium Score (Agatston Score) = 0 using the AJ-130 method. The interpretation of the calcium heart score is based on the following continuum*: 0 = no calcified plaque detected (risk of coronary artery disease is very low ??? less than 5%) 1-10 = calcium detected in extremely minimal levels (risk of coronary diseases is still low ??? less than 10%) 11-100 = mild levels of plaque detected with certainty (mild or minimal narrowing of heart arteries is likely) 101-400 = definite,at least moderate levels of plaque detected (relatively high risk of a heart attack within 3-5 years) >401-999 = extensive levels of plaque detected (high risk of heart attack, high levels of vascular disease are present, high likelihood of at least one significant coronary narrowing) *The calcium heart score quantifies the burden of coronary calcification/plaque in the coronary arteries. The calcium heart score does not evaluate the presence or the burden of non-calcified (i.e. soft) plaque. The coronary and cardiac findings of this Coronary Calcium CT were reviewed, reported, and signed by Agapito Diggs MD (Group Exercise Class Instructor). Conclusion Electronically signed by : Danyelle Diggs MD 05/14/2025 13:00:37
== END 2025-05-14 23:59 | disposition home or self-care (01) ==
LOC: RAD 06:38
PROVIDERS: PCP Family Medicine; Visit Provider Family Medicine
DX: Z13.6 Encounter for screening for cardiovascular disorders (principal)
CPT/HCPCS: 75571